=== PATIENT | female | born 1960 | race Caucasian/White ===

== ENCOUNTER → 2017-01-12 | Outpatient (CLI) | payer OTHER ==
--- NOTE | 2017-01-12 13:48 | REP ---
PA LATERAL CHEST: 01/12/2017. CLINICAL HISTORY: Acute bronchitis symptoms. Nonproductive cough. Chest discomfort. No prior study. FINDINGS: Lungs are well inflated. There is no pleural effusion or dense consolidation. There is peribronchial thickening bilaterally which might reflect reactive airway disease or bronchitis. Some streaky or patchy density adjacent left heart border. This may be epicardial fat pad, some atelectasis or even patchy infiltrate. No effusion or dense consolidation. Retrocardiac zone shows some patchy atelectasis or infiltrate on the left base. No definite effusion or pleural thickening or apical scarring. Heart, mediastinal and hilar contours normal. Airway intact. Calcified aortic arch. No compression deformity or destructive lesion in the spine. The other visible bones also intact. IMPRESSION: 1. Peribronchial thickening suggesting bronchiolitis or reactive airway disease with retrocardiac left lower lobe and left base adjacent to the heart border with patchy atelectasis or infiltrates. It could be an epicardial fat pad contributing to the left heart border appearance. No effusion. 2. No cardiomegaly or edema. 3. Aorta with calcified arch but no aneurysm, it is intact. Signed by Jamshid Romeo MD 01/12/2017 03:31 P
== END ==
LOC: M ADAMS 11:43
PROVIDERS: ATTEND Physician Assistant Medical
DX: J20.9 Acute bronchitis, unspecified (principal)

== ENCOUNTER → 2017-01-25 | Outpatient (CLI) | payer OTHER ==
--- NOTE | 2017-01-25 09:16 | REP ---
MR CERVICAL SPINE WITHOUT CONTRAST: HISTORY: Cervicalgia. Facet hypertrophy is present on the left at the C3-4 level. This produces mild narrowing of the left C3 neural foramen. The right C3 neural foramen in patent. Facet hypertrophy is present on the left at the C4-5 level. This produces minimal narrowing of the left C4 neural foramen. The right C4 neural foramen in patent. A disc bulge with associated osteophyte formation is present at the C5-6 level. There is mild effacement of the thecal sac without spinal cord compression. Bilateral uncinate process hypertrophy is present. This produces moderate narrowing of the C5 neural foramina. There is no other disc bulge or herniation. The remaining neural foramina are patent. The spinal cord is normal in signal intensity. The C5-6 intervertebral disc is decreased in height consistent with disc degeneration. Normal signal intensity is present in the cervical vertebral bodies. IMPRESSION: There is cervical spondylosis at the C3-4 through C5-6 levels without spinal cord compression. Signed by Madhu Noble MD 01/25/2017 09:23 A
== END ==
LOC: M RAD 07:07
PROVIDERS: ATTEND Pain Medicine Pain Medicine
DX: M54.2 Cervicalgia (principal)

== ENCOUNTER → 2017-03-10 | Outpatient (REF) | payer OTHER ==
[2017-03-10 15:35] LABS: FOLATE 8.1 NG/ML (>5.4); VITAMIN B12 LEVEL 380 PG/ML (247-911)
[2017-03-10 16:01] LABS: TOTAL PROTEIN 6.6 GM/DL (6.4-8.2)
[2017-03-11 11:54] LABS: ALBUMIN 4.05 GM/DL (3.29-5.55); ALBUMIN % 61.4 % (55.8-66.1); GAMMA GLOBULIN % 10.1 % (11.1-18.8)
[2017-03-14 08:06] LABS: VITAMIN E LEVEL 11.2 mg/L (5.3-16.8)
== END ==
LOC: M LABNEURO 12:58
PROVIDERS: ATTEND Psychiatry & Neurology Neurology
DX: E11.21 Type 2 diabetes mellitus with diabetic nephropathy (principal)

== ENCOUNTER → 2017-07-05 | Outpatient (REF) | payer OTHER | LOC: M LAB REF 17:11 | PROVIDERS: ATTEND Ophthalmology | DX: L72.0 Epidermal cyst (principal) ==

== ENCOUNTER → 2017-07-13 | Outpatient (CLI) | payer OTHER ==
[~2017-07-13] MED LIST: E-Z-GAS II EFFERVESCENT PACKET (SODIUM BICARB./CITRIC ACID/SIMETHICONE) As Ordered ONE; E-Z-HD 98% w/w 340GM SUSP BTL As Ordered ONE; E-Z-PAQUE 96% w/w SUSP 176GM BTL As Ordered ONE; ISOVUE-370 76% 100ML VIAL (Q9967) As Ordered ONE
--- NOTE | 2017-07-13 08:39 | REP ---
CT NECK WITH CONTRAST: HISTORY: Dysphagia. CONTRAST: Isovue 370, 75 mL. Calcifications are present in the tonsils. This is secondary to previous inflammatory disease. The naso-, valentín- and hypopharynx, larynx and subglottic trachea are otherwise normal in appearance. The salivary and thyroid glands are normal in size and density. Small lymph nodes less than 1 cm in size are present in the internal jugular chains, posterior triangles and submandibular area. Atherosclerotic calcification is present at the bifurcations. Degenerative change is present in the cervical spine. The lung apices are clear. The visualized sinuses are clear. IMPRESSION: There is no neck mass or adenopathy. Signed by Madhu Noble MD 07/13/2017 08:58 A
--- NOTE | 2017-07-13 17:08 | REP ---
Esophagram The procedure was performed under the direct supervision of Dr. Casanova. The images were reviewed with Dr. Casanova. A single view PA chest x-ray is submitted as a yard motor operator film. The superior mediastinal structures are midline. The heart size is within normal limits. The lungs are clear. Liquid barium and gas producing granules were given in the erect position as well as liquid barium in the prone oblique positions in order to perform a double contrast esophagram examination. The oral and pharyngeal stages of deglutition are unremarkable. Note is made of bilateral carotid vascular calcifications. Esophageal transport is prompt and efficient and there is no esophagitis, stricture, mucosal ring or hiatal hernia. Gastroesophageal reflux is not demonstrated on this examination. Impression: Essentially unremarkable double contrast esophagram examination. Note is made of bilateral carotid vascular calcifications. 1 minute and 9 seconds of fluoro time was utilized for this procedure. Reviewed by ESTEBAN Capone 07/13/2017 04:11 PSigned by Franklin Casanova MD 07/13/2017 04:59 P
== END ==
LOC: M RAD 07:42
PROVIDERS: ATTEND Otolaryngology
DX: R49.0 Dysphonia (principal)
CPT/HCPCS: 70491; 74220; Q9967

== ENCOUNTER → 2017-11-18 | Outpatient (REF) | payer OTHER ==
[2017-11-18 13:43] LABS: HIV 1&2 SCREEN CENTAUR NEGATIVE (NEGATIVE)
== END ==
LOC: M SFHCADAM 09:50
DX: Z20.6 Contact with and (suspected) exposure to human immunodeficiency virus [HIV] (principal)

== ENCOUNTER → 2017-12-13 | Outpatient (REF) | payer OTHER ==
[2017-12-13 12:56] LABS: HEMATOCRIT 47.6 % (36.0-47.0); HEMOGLOBIN 15.7 g/dl (12.0-16.0); MEAN CORPUSCULAR HEMOGLOBIN 31.3 pg (27.0-33.0); MEAN CORPUSCULAR VOLUME 94.8 fl (80.0-96.0); PLATELET COUNT, AUTOMATED 247 10^3/uL (150-450); RED BLOOD COUNT 5.02 10^6/uL (4.00-5.40); RED CELL DISTRIBUTION WIDTH 12.8 % (11.5-14.5); WHITE BLOOD COUNT 9.7 10^3/uL (4.0-10.0)
[2017-12-13 13:29] LABS: ALBUMIN 3.8 GM/DL (3.2-5.2); ALBUMIN/GLOBULIN RATIO 1.19 (1.00-1.93); ALKALINE PHOSPHATASE 120 U/L (45-117); ALT/SGPT 29 U/L (12-78); ANION GAP 8 MEQ/L (8-16); AST/SGOT 19 U/L (7-37); BILIRUBIN,TOTAL 0.5 MG/DL (0.2-1.0); BLOOD UREA NITROGEN 10 MG/DL (7-18); CALCIUM LEVEL 9.5 MG/DL (8.5-10.1); CARBON DIOXIDE LEVEL 27 MEQ/L (21-32); CHLORIDE LEVEL 106 MEQ/L (98-107); CREATININE FOR GFR 0.56 MG/DL (0.55-1.30); GLOMERULAR FILTRATION RATE > 60.0 (>51); GLUCOSE, FASTING 88 MG/DL (70-100); POTASSIUM SERUM 4.4 MEQ/L (3.5-5.1); SODIUM LEVEL 141 MEQ/L (136-145)
[2017-12-13 13:44] LABS: ERYTHROCYTE SEDIMENTATION RATE 5 mm/hr (0-30)
== END ==
LOC: M SFHCADAM 10:48
DX: G44.211 Episodic tension-type headache, intractable (principal); I10 Essential (primary) hypertension
CPT/HCPCS: 80053

== ENCOUNTER → 2018-03-13 | Outpatient (CLI) | payer OTHER | LOC: M PLARAD 09:25 | DX: M54.2 Cervicalgia (principal) | CPT/HCPCS: 72141 ==

== ENCOUNTER 2018-05-09 07:48 | Emergency (ER) | payer OTHER ==
[2018-05-09] MEDS ORDERED: KETOROLAC 30 MG/ML VIAL (J1885) IV ×2 (08:30)
[2018-05-09] MEDS: MORPHINE 4 MG/ML 1ML VIAL/SYRINGE (J2270) IV ×4 (08:45→08:49)
[2018-05-09] MEDS: ONDANSETRON 4MG/2ML VIAL (J2405) IV ×4 (08:45→08:49)
[2018-05-09 08:52] LABS: BASO # 0.1 10^3/uL (0.0-0.2); BASO % 0.8 % (0.0-1.0); EOS # 0.2 10^3/uL (0.0-0.50); HEMOGLOBIN 15.3 g/dl (12.0-15.5); IMMATURE GRANULOCYTE % 0.3 % (0-3.0); LYMPH # 2.3 10^3/uL (1.5-4.5); LYMPH % 29.8 % (24.0-44.0); MEAN CORPUSCULAR HEMOGLOBIN 32.6 pg (27.0-33.0); MEAN CORPUSCULAR HGB CONC 33.3 g/dl (32.0-36.5); MEAN CORPUSCULAR VOLUME 97.9 fl (80.0-96.0); MONO # 0.5 10^3/uL (0.0-0.8); MONO % 6.5 % (0.0-5.0); NEUTROPHILS # 4.6 10^3/uL (1.8-7.7); NEUTROPHILS % 60.6 % (36.0-66.0); PLATELET COUNT, AUTOMATED 162 10^3/uL (150-450); RED CELL DISTRIBUTION WIDTH 12.6 % (11.5-14.5); WHITE BLOOD COUNT 7.6 10^3/uL (4.0-10.0)
[2018-05-09 09:06] LABS: D-DIMER QUANT 530.9 ng/ml (<500)
[2018-05-09] MEDS: KETOROLAC 30 MG/ML VIAL (J1885) IM ×2 (09:11)
[2018-05-09 09:19] LABS: ANION GAP 6 MEQ/L (8-16); BLOOD UREA NITROGEN 9 MG/DL (7-18); CALCIUM LEVEL 8.6 MG/DL (8.5-10.1); CARBON DIOXIDE LEVEL 28 MEQ/L (21-32); CHLORIDE LEVEL 109 MEQ/L (98-107); CK-MB VALUE MASS 1.9 NG/ML (<3.6); CPK CREATINE PHOSPHOKINASE 94 U/L (26-192); CREATININE FOR GFR 0.59 MG/DL (0.55-1.30); GLOMERULAR FILTRATION RATE > 60.0 (>51); GLUCOSE, FASTING 91 MG/DL (70-100); MB/CK RELATIVE INDEX 2.02 (< OR =4); POTASSIUM SERUM 3.7 MEQ/L (3.5-5.1); SODIUM LEVEL 143 MEQ/L (136-145); TROPONIN I < 0.02 NG/ML (< 0.10)
[2018-05-09] MEDS ORDERED: ISOVUE-370 76% 100ML VIAL (Q9967) As Ordered ×2 (09:31)
[2018-05-09 11:38] LABS: CPK CREATINE PHOSPHOKINASE 77 U/L (26-192); TROPONIN I < 0.02 NG/ML (< 0.10)
[2018-05-09 11:39] LABS: CK-MB VALUE MASS 2.1 NG/ML (<3.6); MB/CK RELATIVE INDEX 2.72 (< OR =4)
== END 2018-05-09 12:19 | disposition home or self-care (01) ==
LOC: M ED 07:48
DX: R07.89 Other chest pain (principal); I45.10 Unspecified right bundle-branch block; M54.6 Pain in thoracic spine; I10 Essential (primary) hypertension; F17.210 Nicotine dependence, cigarettes, uncomplicated; Z82.49 Family history of ischemic heart disease and other diseases of the circulatory system; Z88.0 Allergy status to penicillin; Z88.2 Allergy status to sulfonamides; Z79.899 Other long term (current) drug therapy
CPT/HCPCS: J2405

== ENCOUNTER → 2018-11-17 | Outpatient (CLI) | payer OTHER ==
[~2018-11-17] MED LIST changes: +AMLO10TA5; +BACL10TA2; -E-Z-GAS II EFFERVESCENT PACKET (SODIUM BICARB./CITRIC ACID/SIMETHICONE) As Ordered ONE; -E-Z-HD 98% w/w 340GM SUSP BTL As Ordered ONE; -E-Z-PAQUE 96% w/w SUSP 176GM BTL As Ordered ONE; +GABA600T4; -ISOVUE-370 76% 100ML VIAL (Q9967) As Ordered ONE; +LISI-542; +NAPR-885 PO; +OXYC10TA3
--- NOTE | 2018-12-04 01:07 | ECWPNPC ---
PATIENT NAME: STU MEJIA : 1960 GENDER: FEMALE VISIT DATE: 11/17/2018 DISCHARGE DATE: 11/17/18 1224 VISIT LOCKED DATE TIME: PHYSICIAN: AL LOVELL MD RESOURCE: AL LOVELL MD REASON FOR APPOINTMENT 1. NECK AND BACK PAIN W/ POLYNEUROPATHY HISTORY OF PRESENT ILLNESS NEW PATIENT CONSULT: WHEN DID YOUR PAIN FIRST START? . BRIEFLY DESCRIBE HOW YOUR PAIN STARTED? . HOW DOES YOUR PAIN CHANGE WITH TIME? . DOES YOUR PAIN AWAKEN YOU FROM SLEEP? . HOW MANY HOURS OF SLEEP DO YOU NORMALLY GET? . ANY DIAGNOSTIC TESTING? . FACILITY WHERE TESTS WERE DONE? ____. PAIN TREATMENT TREATMENT YES CANCER HAVE YOU EVER HAD ANY TYPE OF CANCER?NO NO. PAIN SCREENING: PATIENT HAS A COMPLAINT OF ACUTE OR CHRONIC PAIN :YES 58 YEAR OLD FEMALE PATIENT WITH A HISTORY OF CHRONIC LOW BACK AND NECK PAIN. THE PATIENT DESCRIBES THE PAIN ACHING, BURNING, SHARP, AND CONTINUOUS WITH A PAIN SCORE OF 4-8/10 DEPENDING ON PHYSICAL ACTIVITY. THE PATIENT SAYS HER PAIN IS IN HER NECK AREA AND LOW BACK AREA WITH RADIATION DOWN HER RIGHT LEG. THE PATIENT SAYS THAT SHE HAS HAD THIS PAIN FOR A FEW YEARS AND HAS RECEIVED INJECTIONS IN THE PAST AT [facility] AND [facility]. THE PATIENT SAYS SHE HAS HAD GOOD PAIN RELIEF WITH INJECTIONS IN THE PAST. THE PATIENT REPORTS THAT SHE HAS A HISTORY OF VERTIGO AND SHE IS UNABLE TO MOVE HER NECK CERTAIN WAYS DUE TO THIS, BUT IS BEING TREATED FOR IT. PATIENT DENIES UNEXPLAINABLE WEIGHT LOSS, FEVER, CHILLS, NEW CHANGES ON HER URINARY OR BOWEL CONTROL. FALL RISK SCREENING: SCREENING : NO FALLS IN THE PAST YEAR. CASTANEDA INVENTORY: QUESTIONNAIRE ASSESSEDTBD SCORE VALUE CALCULATED TBD CURRENT MEDICATIONS TAKING OXYCODONE-ACETAMINOPHEN 10-325 MG TABLET 1 TABLET NEEDED ORALLY TAKING GABAPENTIN 600 MG TABLET 1 CAP AM 1/2 NOON 1 CAP PM ORALLY THREE TIMES DAILY TAKING MULTIVITAMIN - TABLET CHEWABLE 1 TAB ORALLY DAILY TAKING VITAMIN B12 1000 MCG TABLET EXTENDED RELEASE 1 TABLET ORALLY ONCE A DAY TAKING AMLODIPINE BESYLATE 10 MG TABLET 1 TABLET ORALLY ONCE A DAY IN THE WINTER DUE TO RAGLAND BITE/FEET TAKING MECLIZINE HCL 25 MG TABLET 1 TABLET NEEDED ORALLY BEFORE BEDTIME TAKING CLARITIN 10 MG TABLET 1 TABLET ORALLY ONCE A DAY TAKING CHANTIX STARTING MONTH VARUN 0.5 MG X 11 & 1 MG X 42 TABLET DIRECTED ORALLY DIRECTED, NOTES: NOT STARTED YET TAKING CHANTIX CONTINUING MONTH VARUN 1 MG TABLET 1 TABLET ORALLY TWICE A DAY, NOTES: NOT STARTED YET NOT-TAKING FLUTICASONE PROPIONATE 50 MCG/ACT SUSPENSION SPRAY 2 SPRAYS IN EACH NOSTRIL ONCE DAILY NASAL NOT-TAKING OXYCONTIN 10 MG TABLET EXTENDED RELEASE 12 HOUR 1 TABLET ORALLY DAILY PRN MEDICATION LIST REVIEWED AND RECONCILED WITH THE PATIENT PAST MEDICAL HISTORY ABNORMAL PAP SMEAR, HPV +PRIOR TO 1999 RAYNAUD'S RAGLAND BITE- FEET 2004 NEUROPATHY ARMS AND LEGS - EMG 08/04/16 - SENSORY PERIPHERAL POLYNEUROPATHY - FOLLOWED BY DR. 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 ALLERGIES PENICILLIN (FOR ALLERGIES USE ONLY): ANAPHYLAXIS: ALLERGY SULFA (FOR ALLERGY USE ONLY): ANAPHYLAXIS: ALLERGY DOXYCYCLINE: NAUSEA, DIARRHEA: SIDE EFFECTS SURGICAL HISTORY CHOLECYSTECTOMY 1998 COLPOSCOPY [id number] COLONOSCOPY (FOR DIARRHEA) WITH NORMAL FINDINGS 2004 NUMEROUS INJECTIONS INCLUDING RADIOFREQUENCY 2016 UNTIL NOW FAMILY HISTORY FATHER: 71 YRS, MVA MOTHER: ALIVE, ATRIAL FIB SIBLINGS: SISTER BREAST CANCER AT AGE EARLY 40'S [facility]. SOCIAL HISTORY GENERAL: TOBACCO USE ARE YOU A:CURRENT SMOKER ARE YOU INTERESTED IN QUITTING?THINKING ABOUT QUITTING COUNSELED THE PATIENT ON SMOKING CESSATION, EDUCATION [id number]/15/2019 HOW MANY CIGARETTES A DAY DO YOU SMOKE?11-20 HOW SOON AFTER YOU WAKE UP DO YOU SMOKE YOUR FIRST CIGARETTE?WITHIN 5 MIN HOW OFTEN DO YOU SMOKE CIGARETTES?EVERY DAY PATIENT COUNSELED ON THE DANGERS OF TOBACCO USE AND URGED TO QUIT:11/17/2018 ALCOHOL SCREENING DID YOU HAVE A DRINK CONTAINING ALCOHOL IN THE PAST YEAR?NO POINTS0 INTERPRETATIONNEGATIVE RECREATIONAL DRUG USE SMOKING STATUS: CURRENT SMOKER, IS THE PATIENT BETWEEN THE AGE OF 55 AND 77? YES, HAS THE PATIENT EVER BEEN DIAGNOSED WITH LUNG CANCER? NO. CAFFEINE CAFFEINE USE?YES DAILY SEVERAL CUPS CATHOLIC [id number] SABIANISM LANGUAGE LANGUAGES SPOKEN:DANISH EDUCATION LEVEL OF EDUCATION:HIGH SCHOOL OCCUPATION: DO YOU FEEL SAFE IN YOUR ENVIRONMENT? YES. DIET: DO YOU FEEL SAFE IN YOUR ENVIRONMENT? YES [facility]. EXERCISE: DO YOU FEEL SAFE IN YOUR ENVIRONMENT? YES [facility], REGULAR. MARITAL STATUS: DO YOU FEEL SAFE IN YOUR ENVIRONMENT? YES [facility], REGULAR, WALKS KEEP WORKING. OTHERS AT HOME: DO YOU FEEL SAFE IN YOUR ENVIRONMENT? YES [facility], REGULAR, WALKS KEEP WORKING, SINGLE. HOUSING: PFS REFERRAL NEEDED? NO, CLERGY REFERRAL NEEDED? NO, PUBLIC HEALTH REFERRAL NEEDED? NO, WAS THE PROVIDER NOTIFIED OF ANY PERTINENT INFO? NO, HAS THE PATIENT BEEN EDUCATED REGARDING HIS/HER PLAN OF CARE? YES, HAS THE PATIENT BEEN EDUCATED REGARDING PAIN, THE RISK FOR PAIN, THE IMPORTANCE OF EFFECTIVE PAIN MANAGEMENT, AND THE PAIN ASSESSMENT PROCESS? YES. ADVANCE DIRECTIVE ADVANCE DIRECTIVE DISCUSSED WITH PATIENT:YES PATIENT GIVEN PRINTED MATERIAL TO TAKE HOME TO FILL OUT WITH FAMILY MEMBERS, DECLINES MY ASSISTANCE WITH IT AT THIS TIME HOSPITALIZATION/MAJOR DIAGNOSTIC PROCEDURE BROKEN ARM-CHILD SURGERY REVIEW OF SYSTEMS REVIEWED BY: PROVIDER: AL LOVELL MD . CONSTITUTIONAL: ANY CHANGE IN YOUR MEDICAL CONDITION? NO . CHILLS NO . FEVER NO . INFECTION: DO YOU HAVE NEW INFECTIONS? NO . DO YOU HAVE HISTORY OF MRSA? NO . MUSCULOSKELETAL: ANY NEW PATTERNS OF PAIN OR NUMBNESS? INCREASED "EVERYWHERE" . SYTEMIC LUPUS NO . GASTROENTEROLOGY: ANY NEW CHANGE IN BOWEL CONTROL? NO . BARRETTS ESOPHAGUS NO . CIRRHOSIS NO . HEPATITIS NO . LIVER FAILURE NO . ACID REFLUX NO . UNEXPLAINED WEIGHT LOSS NO . GENITOURINARY: ANY NEW CHANGE IN BLADDER CONTROL? NO . IS THERE A CHANCE YOU COULD BE ? NO . HEMATOLOGY/LYMPH: DO YOU TAKE ANY BLOOD THINNERS? (FOR EXAMPLE- COUMADIN, PLAVIX, AGGRENOX, PLATEL, PRADAXA, OR XARELTO) NO . WHEN WAS YOUR LAST DOSE? DATE: TIME: . LOW PLATELET COUNT NO . SICKLE CELL DISEASE NO . VON WILLIEBRANDS NO . FACTOR V LEIDEN NO . THALLASEMIA NO . ANEMIA NO . EASY BRUISING NO . NEUROLOGY: HAVE YOU FALLEN IN THE PAST 12 MONTHS? NO . ANY NEW EXTREMITY NUMBNESS OR WEAKNESS? NO . HEAD INJURY NO . DEMENTIA NO . CEREBRAL PALSY NO . MULTIPLE SCLEROSIS NO . DIZZINESS YES . HEADACHE NO . STROKES NO . VERTIGO YES FLUID BEHIND THE EAR RECENTLY IS TAKING MEDICATION TO RESOLVE THIS ISSUE . CARDIOLOGY: DO YOU HAVE A PACEMAKER OR DEFIBRILLATOR? NO . ANGINA NO . HEART ATTACK NO . HEART SURGERY NO . CONGESTIVE HEART FAILURE/FLUID OVERLOAD NO . CHEST PAIN NO . HIGH BLOOD PRESSURE NO . IRREGULAR HEART BEAT NO . RESPIRATORY: HAVE YOU BEEN SICK IN THE PAST WEEK? NO . FEVER NO . FLU LIKE SYMPTOMS? NO . CPAP NO . BYPAP NO . ASTHMA NO . EMPHYSEMA NO . CHRONIC LUNG DISEASES NO . SHORTNESS OF BREATH ON EXERTION NO . DO YOU USE ANY TYPE OF TOBACCO (SMOKE, SMOKELESS, CHEW)? YES WILL BE STARTING CHANTIX XOON . COUGH NO . SNORING NO . INTEGUMENTARY: DO YOU HAVE ANY RASHES OR OPEN SORES? NO . ALLERGIC/IMMUNO: ARE YOU ALLERGIC TO IV DYE? NO . ANY NEW ALLERGIES? NO . PSYCHIATRIC: DO YOU HAVE THOUGHTS OF HURTING YOURSELF OR SOMEONE ELSE? NO . ARE YOU ABUSED, NEGLECTED, OR IN AN UNSAFE ENVIRONMENT? NO . ENDOCRINOLOGY: ARE YOU DIABETIC? NO . THYROID DISORDER NO . OTHER: DO YOU NEED ANY PRESCRIPTIONS? NO . IF YES, PLEASE LIST: ____ . ANY NEW PROBLEMS WITH YOUR MEDICATIONS? NO . WHEN DID YOU LAST EAT? ____ . WHEN DID YOU LAST DRINK? ____ . WHAT DID YOU LAST DRINK? ____ . NAME OF PERSON DRIVING YOU HOME? ____ . DO YOU HAVE ANY OTHER QUESTIONS OR CONCERNS NO . VITAL SIGNS WT 168 LBS, HT 5'3 1/2", BMI 29.29 INDEX, BP 120/75 MM HG, HR 89 /MIN, RR 18 /MIN, TEMP 97.6 F, OXYGEN SAT % 95%, SAFE IN ENV? (Y/N) YES, NA INITIALS SC 10:28, REVIEWED BY: KG. EXAMINATION GENERAL EXAMINATION: PATIENT IS ALERT O X 3 AND COOPERATIVE. LUNGS CLEAR, TO AUSCULTATION. HEART: NO MURMURS OR GALLOPS; FACIAL CRANIAL NERVES ARE GROSSLY NORMAL. GOOD SYMMETRY OF FACIAL MUSCLE MOVEMENT. NORMAL VISUAL ASHLEY. PATIENT HAS DIFFICULTY ABDUCTING THE UPPER EXTREMITIES. PAIN INCREASES OVER THE CERVICAL FACET JOINTS WITH EXTENSION AND LATERAL ROTATION OF THE NECK. PATIENT IS IN A FLEXED POSITION. TENDERNESS IN THE LOW BACK AREA. RIGHT LEG IS WEAKER AT EXTENSION AND FLEXION. STRAIGHT LEG RAISE OF THE RIGHT LEG IS POSITIVE AT 45 DEGREES FOR RADICULOPATHY. MRI OF THE CERVICAL SPINE DONE ON 03/13/2018 SHOWS BULGING DISCS AND FACET ARTHROPATHY CHANGES AT MULTIPLE LEVELS. MRI OF THE LUMBAR SPINE DONE ON 07/09/2016 SHOWS FACET ARTHROPATHY CHANGES, BULGING DISCS, AND STENOSIS AT MULTIPLE LEVELS. 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 MEJIA'S PAIN MANAGEMENT CASE. I WOULD LIKE TO GET COPIES OF THE PATIENT'S MOST RECENT LUMBAR MRI REPORT. THE PATIENT WILL CONTINUE WITH HER LOW BACK INJECTIONS IN [place] FOR NOW SINCE THEY HAVE ALREADY REQUESTED AUTHORIZATION. THE PATIENT WILL CONSIDER INJECTIONS OVER THE NECK ONCE THE VERTIGO IS UNDER CONTROL. THE PATIENT WILL NEED IV SEDATION WITH ANY PROCEDURES DUE TO PAIN AND ANXIETY ASSOCIATED WITH THE PROCEDURES. THE PATIENT WILL FOLLOW UP IN 2 MONTHS. INSTRUCTIONS WERE GIVEN, QUESTIONS WERE ANSWERED, PATIENT REPORTS UNDERSTANDING AND AGREES WITH THE PLAN. I, TOHMPSON MOHR, DOCUMENTED THE ABOVE INFORMATION ACTING A SCRIBE FOR DR. LOVELL. I HAVE REVIEWED THE ABOVE DOCUMENT, WRITTEN BY THOMPSON DUNCAN AND I VERIFY THAT IT IS ACCURATE. DEAR DR. DENNEY:THANK YOU FOR YOUR KIND REFERRAL OF MRS. MEJIA. IF YOU WANT TO DISCUSS HER CASE WITH ME PLEASE CALL ME AT THE PAIN CENTER AT [phone]. SINCERELY,AL LOVELL, [facility]. PROCEDURE CODES FA211 ESTABILISHED PATIENT [facility] FACILITY CHARGE [id number] CURRENT MEDS W/DOSAGES DOCUMENTED G8730 PAIN ASSESS POS TOOL F/U PLAN DOC DISPOSITION & COMMUNICATION FOLLOW UP 2 MONTHS (REASON: NECK & LOW BACK) ELECTRONICALLY SIGNED BY AL LOVELL MD, MD ON 12/03/2018 AT 01:45 PM EST DISCLAIMER : THIS IS A VISIT SUMMARY EXTRACTED FROM THE [employer] CHART. IT IS NOT A COPY OF THE [employer] PROGRESS NOTE. MTDD
== END ==
LOC: M PAIN 10:30
PROVIDERS: ATTEND Anesthesiology
DX: M47.812 Spondylosis without myelopathy or radiculopathy, cervical region (principal); M47.816 Spondylosis without myelopathy or radiculopathy, lumbar region; M48.061 Spinal stenosis, lumbar region without neurogenic claudication; M51.16 Intervertebral disc disorders with radiculopathy, lumbar region; I73.00 Raynaud's syndrome without gangrene; G62.9 Polyneuropathy, unspecified; I10 Essential (primary) hypertension; F17.210 Nicotine dependence, cigarettes, uncomplicated; R49.0 Dysphonia; Z90.49 Acquired absence of other specified parts of digestive tract; Z79.891 Long term (current) use of opiate analgesic; Z79.899 Other long term (current) drug therapy; Z88.0 Allergy status to penicillin; Z88.2 Allergy status to sulfonamides; Z88.1 Allergy status to other antibiotic agents

== ENCOUNTER → 2018-11-23 | Outpatient (CLI) | payer OTHER ==
[~2018-11-23] MED LIST changes: +PROHANCE 279.3MG/ML 15ML VIAL (A9576) As Ordered ONE
--- NOTE | 2018-11-23 11:05 | REP ---
MRI BRAIN WITHOUT CONTRAST: HISTORY: Dizziness. CONTRAST: ProHance 15 mL. Several punctate areas of increased signal intensity on T2-weighted images are present in the clementina. This represents small vessel ischemic disease. There is no intraparenchymal hemorrhage, infarct, mass or midline shift. There is no abnormal enhancement. The ventricular system is normal in appearance. There is no extracerebral collection. There is inferior extension of the cerebellar tonsils through the foramen magnum consistent with cerebellar tonsillar ectopia. There is no cerebellopontine angle mass. The inner ear structures are normal in appearance. Minimal mucosal thickening is present in the mastoid air cells. The sinuses are clear. IMPRESSION: 1. Minimal small vessel ischemic disease. 2. Cerebellar tonsillar ectopia. Electronically Signed by Madhu Noble MD 11/23/2018 11:13 A
--- NOTE | 2018-11-24 10:04 | REP ---
Clinical: Headaches and dizziness with presyncopal episode. Technique: Anglin scale and color Doppler evaluation using linear high frequency transducer Findings: Two-dimensional anglin scale and color images demonstrate mixed atheromatous plaquing (left greater than right). Color Doppler interrogation demonstrates normal arterial wave patterns and velocities with no significant spectral broadening. Normal flow direction is appreciated in the bilateral vertebral arteries. RIGHT (cm/s) LEFT (cm/s) ICA peak systolic velocity 65.0 84.4 ICA diastolic velocity 31.7 25.2 ECA peak systolic velocity 88.7 103.0 CCA peak systolic velocity 65.2 72.4 ICA/CCA ratio 1.0 1.2 Impression: No hemodynamically significant areas of narrowing or stenosis appreciated. Based on set standards narrowing falls within the less than 50% range. Electronically Signed by Osman Pepe MD 11/24/2018 09:56 A
== END ==
LOC: M RAD 09:31
PROVIDERS: ATTEND Physician Assistant Medical
DX: R42 Dizziness and giddiness (principal); R55 Syncope and collapse
CPT/HCPCS: 70553; 93880; A9576

== ENCOUNTER → 2019-10-30 | Outpatient (CLI) | payer OTHER ==
[~2019-10-30] MED LIST changes: -PROHANCE 279.3MG/ML 15ML VIAL (A9576) As Ordered ONE
--- NOTE | 2019-10-31 03:46 | REP ---
Clinical: Shoulder pain. Technique: Internal rotation, external rotation, and Y view of the right and left shoulder. Findings: Right shoulder demonstrates cortical irregularity with subtle spurring and small calcification at the acromioclavicular joint as well as subtle blunting to the calcified glenoid rim. Subacromial space is normal. No acute fracture or dislocation. Left shoulder demonstrates minimal cortical irregularity at the acromioclavicular joint and mild blunting to the calcified glenoid rim. The subacromial space is normal. No periarticular calcifications or loose bodies noted. No acute fracture dislocation. Impression: Mild arthritic changes (right greater than left). Electronically Signed by Osman Pepe MD 10/31/2019 03:38 A
== END ==
LOC: M ADAMS 09:24
PROVIDERS: ATTEND Nurse Practitioner Family
DX: M19.011 Primary osteoarthritis, right shoulder (principal); M19.012 Primary osteoarthritis, left shoulder

== ENCOUNTER → 2019-10-30 | Outpatient (CLI) | payer OTHER ==
--- NOTE | 2019-10-31 03:42 | REP ---
Clinical: Dyspnea on exertion . Comparison: 05/09/2018 . Technique: PA and lateral. Findings: The mediastinum and cardiac silhouette are normal. The lung bhatt are clear and without acute consolidation, effusion, or pneumothorax. The skeletal structures are intact and normal. Impression: 1. No acute cardiopulmonary process. Electronically Signed by Osman Pepe MD 10/31/2019 03:34 A
== END ==
LOC: M ADAMS 11:13
PROVIDERS: ATTEND Physician Assistant
DX: R06.09 Other forms of dyspnea (principal)

== ENCOUNTER → 2019-10-30 | Outpatient (REF) | payer OTHER ==
[2019-10-30 13:20] LABS: HEMATOCRIT 46.5 % (36.0-47.0); HEMOGLOBIN 15.5 g/dl (12.0-15.5); MEAN CORPUSCULAR HEMOGLOBIN 32.6 pg (27.0-33.0); MEAN CORPUSCULAR HGB CONC 33.3 g/dl (32.0-36.5); MEAN CORPUSCULAR VOLUME 97.9 fl (80.0-96.0); PLATELET COUNT, AUTOMATED 210 10^3/uL (150-450); RED BLOOD COUNT 4.75 10^6/uL (4.00-5.40); WHITE BLOOD COUNT 8.2 10^3/uL (4.0-10.0)
[2019-10-30 13:54] LABS: ALBUMIN 3.8 GM/DL (3.2-5.2); ALT/SGPT 125 U/L (12-78); BILIRUBIN,TOTAL 0.5 MG/DL (0.2-1.0); BLOOD UREA NITROGEN 9 MG/DL (7-18); CALCIUM LEVEL 9.1 MG/DL (8.5-10.1); CARBON DIOXIDE LEVEL 29 MEQ/L (21-32); CHLORIDE LEVEL 105 MEQ/L (98-107); CHOLESTEROL LEVEL 196 MG/DL (<200); CHOLESTEROL RISK RATIO 3.379 (<5); CREATININE FOR GFR 0.54 MG/DL (0.55-1.30); FREE T4 1.29 NG/DL (0.76-1.46); GLOMERULAR FILTRATION RATE > 60.0 (>51); GLUCOSE, FASTING 84 MG/DL (70-100); HDL CHOLESTEROL 58 MG/DL (>40); LDL CHOLESTEROL 114 MG/DL (<100); NON-HDL-C 138 MG/DL; POTASSIUM SERUM 4.2 MEQ/L (3.5-5.1); SODIUM LEVEL 138 MEQ/L (136-145); THYROID STIMULATING HORMONE 0.897 uIU/ML (0.358-3.740); TOTAL PROTEIN 6.8 GM/DL (6.4-8.2); TRIGLYCERIDES LEVEL 121 MG/DL (<150)
[2019-10-30 13:56] LABS: FOLATE 19.4 NG/ML; TOTAL 25(OH) VITAMIN D 23.2 NG/ML (30.0-100.0); VITAMIN B12 LEVEL 373 PG/ML
== END ==
LOC: M SFHCADAM 10:32
PROVIDERS: ATTEND Physician Assistant
DX: R06.09 Other forms of dyspnea (principal); F17.210 Nicotine dependence, cigarettes, uncomplicated; I10 Essential (primary) hypertension; J44.9 Chronic obstructive pulmonary disease, unspecified; Z13.220 Encounter for screening for lipoid disorders; M54.5 Low back pain; R53.82 Chronic fatigue, unspecified

== ENCOUNTER → 2019-11-12 | Outpatient (CLI) | payer OTHER ==
--- NOTE | 2019-11-12 10:37 | REP ---
Clinical: Lung screening. History smoking and dyspnea on exertion. Comparison: Contrast enhanced chest CT dated 05/09/2018 Technique: Axial low-dose noncontrast images from the thoracic inlet to the upper abdomen using lung screening technique. Findings: The lung bhatt are well-aerated. No consolidation, significant nodule or mass lesion is appreciated. No pleural effusion/reaction or pneumothorax. Tracheobronchial tree is patent. Mediastinum demonstrates mild atherosclerotic changes of the coronary arteries without cardiomegaly. Impression: Lung-RADS category I. No nodule or suspicious abnormality. Electronically Signed by Osman Pepe MD 11/12/2019 10:28 A
== END ==
LOC: M RAD 09:39
PROVIDERS: ATTEND Physician Assistant
DX: R06.09 Other forms of dyspnea (principal); F17.210 Nicotine dependence, cigarettes, uncomplicated

== ENCOUNTER → 2019-11-15 | Outpatient (REF) | payer OTHER ==
[2019-11-15 16:35] LABS: FERRITIN 90 NG/ML (8-252)
[2019-11-16 10:12] LABS: HEPATITIS B SURFACE ANTIGEN NEGATIVE (NEGATIVE)
[2019-11-16 10:38] LABS: HEPATITIS C VIRUS ABY INDEX < 0.0 INDEX (<0.8)
[2019-11-16 10:39] LABS: HEPATITIS B CORE ANTIBODY IGM NEGATIVE (NEGATIVE)
[2019-11-16 10:41] LABS: HEPATITIS A ANTIBODY IGM NEGATIVE (NEGATIVE)
[2019-11-18 00:06] LABS: ANA (HEP2) Negative (.); ANTI-MITOCHONDRIAL ANTIBODY <20.0 Units (0.0-20.0)
== END ==
LOC: M SFHCADAM 12:57
PROVIDERS: ATTEND Physician Assistant
DX: R74.8 Abnormal levels of other serum enzymes (principal)

== ENCOUNTER → 2019-11-23 | Outpatient (CLI) | payer OTHER ==
--- NOTE | 2019-11-23 08:30 | REP ---
Right upper quadrant sonography: History: Elevated liver enzymes. Prior cholecystectomy. No comparison sonography. Findings: Scanning through the right upper quadrant of the abdomen demonstrates mildly increased echogenicity in the liver. The liver is not enlarged and no focal liver lesion is seen. Limited views of the pancreas show no abnormality. The common bile duct is normal post cholecystectomy measuring 10 mm in greatest diameter. No intrahepatic ductal dilation is seen. There is no evidence of ascites or right renal abnormality. The right kidney measures 11.6 x 5.7 x 4.1 cm. Impression: No significant abnormality. Post cholecystectomy. Electronically Signed by Franklin Casanova MD 11/23/2019 08:22 A
== END ==
LOC: M RAD 07:21
PROVIDERS: ATTEND Physician Assistant
DX: R74.8 Abnormal levels of other serum enzymes (principal); Z90.49 Acquired absence of other specified parts of digestive tract

== ENCOUNTER → 2020-02-26 | Outpatient (CLI) | payer OTHER ==
--- NOTE | 2020-02-26 13:03 | REP ---
Right lower extremity Duplex Doppler venous ultrasound: Real time compression and duplex Doppler interrogation of the right lower extremity deep venous system is performed. The right common femoral, superficial femoral and popliteal veins are fully compressible with transducer pressure and demonstrate normal spontaneous and phasic flow, without evidence of deep venous thrombosis. Impression: No evidence of deep venous thrombosis of the right lower extremity femoral popliteal venous system. Electronically Signed by Milton Anglin MD 02/26/2020 12:54 P
[2020-02-26 13:26] LABS: BASO # 0.1 10^3/uL (0.0-0.2); BASO % 0.7 % (0.0-1.0); EOS # 0.2 10^3/uL (0.0-0.5); EOS % 2.8 % (0.0-3.0); HEMATOCRIT 43.1 % (36.0-47.0); HEMOGLOBIN 14.1 g/dl (12.0-15.5); LYMPH # 2.1 10^3/uL (1.5-5.0); LYMPH % 24.8 % (24.0-44.0); MEAN CORPUSCULAR HEMOGLOBIN 31.9 pg (27.0-33.0); MEAN CORPUSCULAR HGB CONC 32.7 g/dl (32.0-36.5); MEAN CORPUSCULAR VOLUME 97.5 fl (80.0-96.0); MONO # 0.6 10^3/uL (0.0-0.8); MONO % 7.1 % (0.0-5.0); NEUTROPHILS # 5.5 10^3/uL (1.5-8.5); NEUTROPHILS % 64.3 % (36.0-66.0); PLATELET COUNT, AUTOMATED 212 10^3/uL (150-450); RED BLOOD COUNT 4.42 10^6/uL (4.00-5.40); WHITE BLOOD COUNT 8.6 10^3/uL (4.0-10.0)
[2020-02-26 14:04] LABS: ALBUMIN 3.4 GM/DL (3.2-5.2); ALT/SGPT 22 U/L (12-78); BILIRUBIN,TOTAL 0.7 MG/DL (0.2-1.0); BLOOD UREA NITROGEN 10 MG/DL (7-18); CALCIUM LEVEL 8.9 MG/DL (8.5-10.1); CARBON DIOXIDE LEVEL 27 MEQ/L (21-32); CHLORIDE LEVEL 106 MEQ/L (98-107); CREATININE FOR GFR 0.68 MG/DL (0.55-1.30); GLOMERULAR FILTRATION RATE > 60.0 (>51); GLUCOSE, FASTING 79 MG/DL (70-100); POTASSIUM SERUM 3.9 MEQ/L (3.5-5.1); SODIUM LEVEL 139 MEQ/L (136-145); TOTAL PROTEIN 6.5 GM/DL (6.4-8.2)
== END ==
LOC: M RAD 12:09
PROVIDERS: ATTEND Physician Assistant
DX: R60.0 Localized edema (principal)

== ENCOUNTER 2020-04-16 15:06 | Emergency (ER) | payer OTHER ==
[~2020-04-16] VITALS: Ht 160 cm; Wt 82.6 kg
[2020-04-16 15:06] VITALS: BP 114/72
== END 2020-04-16 15:50 | disposition left against medical advice (07) ==
LOC: M ED 15:06
DX: Z53.21 Procedure and treatment not carried out due to patient leaving prior to being seen by health care provider (principal)

== ENCOUNTER → 2020-05-30 | Outpatient (REF) | payer OTHER ==
[~2020-05-30] MED LIST changes: -AMLO10TA5; +AMLO1TAB25
[2020-05-30 19:20] LABS: BLOOD UREA NITROGEN 5 MG/DL (7-18); CALCIUM LEVEL 8.8 MG/DL (8.5-10.1); CARBON DIOXIDE LEVEL 29 MEQ/L (21-32); CHLORIDE LEVEL 105 MEQ/L (98-107); CREATININE FOR GFR 0.72 MG/DL (0.55-1.30); GLOMERULAR FILTRATION RATE > 60.0 (>51); GLUCOSE, FASTING 70 MG/DL (70-100); SODIUM LEVEL 141 MEQ/L (136-145)
== END ==
LOC: M SFHCADAM 17:54
PROVIDERS: ATTEND Family Medicine
DX: G62.9 Polyneuropathy, unspecified (principal); R60.0 Localized edema

== ENCOUNTER → 2020-06-03 | Outpatient (CLI) | payer OTHER ==
[~2020-06-03] MED LIST changes: +GASTROGRAFIN SOLUTION 30ML (Q9963) As Ordered ONE; +ISOVUE-370 76% 100ML VIAL As Ordered ONE
--- NOTE | 2020-06-30 11:34 | REP ---
CONTRAST ENHANCED CT OF THE ABDOMEN AND PELVIS CLINICAL: Abdominal pain. TECHNIQUE: Axial contrast enhanced images from the lung bases to the pubic symphysis using oral (per protocol) and 100 cc Isovue-370 intravenous contrast material with coronal and sagittal reformations. COMPARISON: None. FINDINGS: Abdominal aortic aneurysm measures 4.5 cm maximal diameter and appears partially thrombosed. The aneurysm originates just below the level of the renal arteries and terminates at the level of the bifurcation where thrombosed occlusion of the left common iliac artery is noted. There is subsequent revascularization of the left common iliac artery at the bifurcation to internal and external arteries likely secondary to collateral vessels from the pelvis and right side. Associated atherosclerotic changes of the aorta and branch vessels noted. The celiac access, superior mesenteric artery, bilateral renal arteries, and right iliac artery demonstrate satisfactory perfusion. The kidneys demonstrate symmetric enhancement without atrophy. Liver, spleen, pancreas, bilateral adrenal glands, and kidneys are normal. Evidence for prior cholecystectomy. Evaluation of the enteric system demonstrates circumferential mucosa thickening at the level of the hepatic flexure which represent peristalsis, although an underlying neoplastic lesion cannot definitively be excluded. There is no evidence for bowel obstruction, and the remainder of the small and large bowel appears grossly normal. Pelvis demonstrates normal bladder and age-appropriate uterus/adnexa. No ascites. No free air. No adenopathy. Musculoskeletal structures demonstrate degenerative changes without acute osseous abnormality. Lung bases are clear. IMPRESSION: * Extensive atherosclerotic disease with abdominal aortic aneurysm measuring 4.5 cm maximal diameter and findings as described above. * Focal circumferential submucosal thickening and luminal narrowing at the hepatic flexure of the colon warrants colonoscopy to exclude underlying pathology such as malignancy. * Chronic further changes as above. * Preliminary report faxed to clinician at the time of examination. [facility]
== END ==
LOC: M RAD 09:34
PROVIDERS: ATTEND Physician Assistant
DX: R10.816 Epigastric abdominal tenderness (principal)

== ENCOUNTER → 2020-06-03 | Outpatient (CLI) | payer OTHER ==
[~2020-06-03] MED LIST changes: -GASTROGRAFIN SOLUTION 30ML (Q9963) As Ordered ONE; -ISOVUE-370 76% 100ML VIAL As Ordered ONE
[2020-06-03 09:48] LABS: BASO # 0.1 10^3/uL (0.0-0.2); BASO % 0.8 % (0.0-1.0); EOS # 0.2 10^3/uL (0.0-0.5); HEMATOCRIT 47.8 % (36.0-47.0); HEMOGLOBIN 15.7 g/dl (12.0-15.5); LYMPH # 2.4 10^3/uL (1.5-5.0); MEAN CORPUSCULAR HEMOGLOBIN 32.6 pg (27.0-33.0); MEAN CORPUSCULAR HGB CONC 32.8 g/dl (32.0-36.5); MEAN CORPUSCULAR VOLUME 99.2 fl (80.0-96.0); MONO # 0.6 10^3/uL (0.0-0.8); MONO % 6.6 % (0.0-5.0); NEUTROPHILS # 5.4 10^3/uL (1.5-8.5); NEUTROPHILS % 62.4 % (36.0-66.0); PLATELET COUNT, AUTOMATED 206 10^3/uL (150-450); RED BLOOD COUNT 4.82 10^6/uL (4.00-5.40); WHITE BLOOD COUNT 8.6 10^3/uL (4.0-10.0)
[2020-06-03 10:17] LABS: ALBUMIN 3.4 GM/DL (3.2-5.2); ALT/SGPT 19 U/L (12-78); AMYLASE 45 U/L (25-115); BILIRUBIN,TOTAL 0.4 MG/DL (0.2-1.0); BLOOD UREA NITROGEN 6 MG/DL (7-18); CALCIUM LEVEL 9.1 MG/DL (8.5-10.1); CARBON DIOXIDE LEVEL 29 MEQ/L (21-32); CHLORIDE LEVEL 106 MEQ/L (98-107); GLOMERULAR FILTRATION RATE > 60.0 (>51); GLUCOSE, FASTING 92 MG/DL (70-100); LIPASE 66 U/L (73-393); POTASSIUM SERUM 4.2 MEQ/L (3.5-5.1); SODIUM LEVEL 142 MEQ/L (136-145); TOTAL PROTEIN 6.7 GM/DL (6.4-8.2)
== END ==
LOC: M LAB 08:47
PROVIDERS: ATTEND Physician Assistant
DX: R10.816 Epigastric abdominal tenderness (principal)

== ENCOUNTER → 2020-10-29 | Outpatient (CLI) | payer OTHER ==
[~2020-10-29] MED LIST changes: -LISI-542; +LISI-898
--- NOTE | 2020-10-29 10:02 | REPVR ---
PROCEDURE INFORMATION: Exam: CT Lumbar Spine Without Contrast Exam date and time: 10/29/2020 9:26 AM Age: 60 years old Clinical indication: Low back pain; Additional info: Lumbar radiculopathy TECHNIQUE: Imaging protocol: Computed tomography images of the lumbar spine without contrast. Radiation optimization: All CT scans at this facility use at least one of these dose optimization techniques: automated exposure control; mA and/or kV adjustment per patient size (includes targeted exams where dose is matched to clinical indication); or iterative reconstruction. COMPARISON: MRI-Spine, L.S. without con 07/09/2016 9:12 AM FINDINGS: Vertebrae: No acute fracture. Diffuse demineralization of the bones. Mild loss of disc spaces with disc vacuum phenomena at multiple levels. Minimal retrolisthesis of L4 on L5. Multilevel anterior osteophyte formation and facet joint arthropathy. L1-L2: Mild diffuse disc bulge with bilateral facet joint arthropathy without any significant central spinal canal stenosis or neural foraminal narrowing. L2-L3: Diffuse disc bulge with bilateral facet joint arthropathy without any significant central spinal canal stenosis or neural foraminal narrowing. L3-L4: Diffuse disc bulge with bilateral facet joint arthropathy and ligamentum flavum hypertrophy resulting in mild central spinal canal stenosis and mild bilateral neural foraminal narrowing. L4-L5: Diffuse disc bulge with bilateral facet joint arthropathy and ligamentum flavum hypertrophy resulting in mild central spinal canal stenosis and mild bilateral neural foraminal narrowing. L5-S1: Diffuse disc bulge with bilateral facet joint arthropathy resulting in mild central spinal canal stenosis, moderate right and mild to moderate left neural foraminal narrowing. Soft tissues: Unremarkable. Aortic stent graft extending into the right common iliac artery. Aortic aneurysm measuring about 4.5 x 4.2 mm. No retroperitoneal hematoma formation. Status post cholecystectomy. Few colonic diverticula. IMPRESSION: Multilevel degenerative changes as described in detail above. Please see above dictation for individual levels. Electronically signed by: Luz Maria Robles On 10/29/2020 10:02:19 AM
== END ==
LOC: M RAD 09:01
PROVIDERS: ATTEND Nurse Practitioner Family
DX: M51.16 Intervertebral disc disorders with radiculopathy, lumbar region (principal); M48.061 Spinal stenosis, lumbar region without neurogenic claudication

== ENCOUNTER → 2020-11-03 | Outpatient (REF) | payer OTHER ==
[~2020-11-03] MED LIST changes: +LISI-542; -LISI-898
== END ==
LOC: M LAB REF 12:45
PROVIDERS: ATTEND Nurse Practitioner Family
DX: L03.114 Cellulitis of left upper limb (principal)

== ENCOUNTER → 2020-12-12 | Outpatient (CLI) | payer OTHER ==
[~2020-12-12] MED LIST changes: +CLOP75TA2 PO; +COLA100C5 PO; -GABA600T4; +GABA600T4 PO; -LISI-542; +LISI-898; -OXYC10TA3; +OXYC10TA3 PO
== END ==
LOC: M LABSMTC 11:07
PROVIDERS: ATTEND Anesthesiology
DX: Z01.812 Encounter for preprocedural laboratory examination (principal); Z20.822 Contact with and (suspected) exposure to COVID-19

== ENCOUNTER 2020-12-17 08:00 | Day surgery (SDC) | payer OTHER ==
[~2020-12-17] VITALS: Ht 160 cm; Wt 76.2 kg
[~2020-12-17 08:00] MED LIST changes: +LIDOCAINE 2% 100MG/5ML SDV (FOR ANES.) As Ordered ONE; +NS 1,000 ML IV ONE; +propofoL 200 MG/20 ML VIAL As Ordered ONE
--- NOTE | 2020-12-17 09:42 | ROOR ---
Patient Name: Nicole West Procedure Date: 12/17/2020 8:56 AM Date of : 1960 Age: 60 Room: [facility] Gender: Female Note Status: Finalized Procedure: Colonoscopy Indications: Abnormal CT of the GI tract Providers: DO Elsa Raya MD: TAYLOR Jimenez Requesting Provider: Medicines: Propofol per Anesthesia Complications: No immediate complications. Procedure: Pre-Anesthesia Assessment: - Prior to the procedure, a History and Physical was performed, and patient medications and allergies were reviewed. The patient is competent. The risks and benefits of the procedure and the sedation options and risks were discussed with the patient. All questions were answered and informed consent was obtained. Patient identification and proposed procedure were verified by the physician, the nurse, the instructor bridge and the administrative support technician in the endoscopy suite. Mental Status Examination: alert and oriented. Airway Examination: normal oropharyngeal airway and neck mobility. Respiratory Examination: clear to auscultation. CV Examination: normal. Prophylactic Antibiotics: The patient does not require prophylactic antibiotics. Prior Anticoagulants: The patient has taken no previous anticoagulant or antiplatelet agents. ASA Grade Assessment: II - A patient with mild systemic disease. After reviewing the risks and benefits, the patient was deemed in satisfactory condition to undergo the procedure. The anesthesia plan was to use monitored anesthesia care (MAC). Immediately prior to administration of medications, the patient was re-assessed for adequacy to receive sedatives. The heart rate, respiratory rate, oxygen saturations, blood pressure, adequacy of pulmonary ventilation, and response to care were monitored throughout the procedure. The physical status of the patient was re-assessed after the procedure. The Colonoscope was introduced through the anus and advanced to the cecum, identified by appendiceal orifice and ileocecal valve. The colonoscopy was performed without difficulty. The patient tolerated the procedure well. Findings: Two multi-lobulated polyps were found in the hepatic flexure. The polyps were 4 to 20 mm in size. These polyps were removed with a hot snare. Resection and retrieval were complete. Estimated blood loss was minimal. Impression: - Two 4 to 20 mm polyps at the hepatic flexure, removed with a hot snare. Resected and retrieved. Recommendation: - Patient has a contact number available for emergencies. The signs and symptoms of potential delayed complications were discussed with the patient. Return to normal activities tomorrow. Written discharge instructions were provided to the patient. - Await pathology results. - Repeat colonoscopy in 1 year for surveillance after piecemeal polypectomy. - Return to my office at appointment to be scheduled. - Await pathology results. Procedure Code(s): --- Professional --- 14706, Colonoscopy, flexible; with removal of tumor(s), polyp(s), or other lesion(s) by snare technique Diagnosis Code(s): --- Professional --- K63.5, Polyp of colon R93.3, Abnormal findings on diagnostic imaging of other parts of digestive tract CPT copyright 2019 [employer]. All rights reserved. The codes documented in this report are preliminary and upon vice president of customer service review may be revised to meet current compliance requirements. Milton Maki DO 12/17/2020 9:41:23 AM Electronically signed by Milton Maki DO Number of Addenda: 0 Note Initiated On: 12/17/2020 8:56 AM Estimated Blood Loss: Estimated blood loss was minimal.
[2020-12-17 09:55] VITALS: BP 146/74
== END 2020-12-17 09:59 | disposition home or self-care (01) ==
LOC: M OPP 08:00
PROVIDERS: ATTEND Surgery
DX: D12.3 Benign neoplasm of transverse colon (principal); R93.3 Abnormal findings on diagnostic imaging of other parts of digestive tract; I10 Essential (primary) hypertension; F17.210 Nicotine dependence, cigarettes, uncomplicated; I71.4 Abdominal aortic aneurysm, without rupture; Z79.891 Long term (current) use of opiate analgesic; Z79.899 Other long term (current) drug therapy; Z88.0 Allergy status to penicillin; Z88.2 Allergy status to sulfonamides

== ENCOUNTER → 2020-12-29 | Outpatient (CLI) | payer OTHER ==
[~2020-12-29] MED LIST changes: -LIDOCAINE 2% 100MG/5ML SDV (FOR ANES.) As Ordered ONE; -NS 1,000 ML IV ONE; -propofoL 200 MG/20 ML VIAL As Ordered ONE
--- NOTE | 2020-12-29 11:18 | REP ---
INDICATION: NICOTINE DEPEND. COMPARISON: Comparison screening chest CT study November 12, 2019. Comparison CT pulmonary angiogram May 09, 2018.. TECHNIQUE: Dose reduction was performed utilizing CARE dose with automated adjustment of the kV and MAS according to patient size; iterative reconstruction, automated exposure control, as well as adaptive dose shielding. Helical scanning is acquired and 3 mm axial images are re-formatted at lung only windows. FINDINGS: Digital preliminary supervisor drying and winding radiograph is unremarkable. There are clips in right upper quadrant of the abdomen. Vascular calcification is observed unchanged. No lung mass or new pulmonary nodule is appreciated. No infiltrate or atelectasis is seen. IMPRESSION: Stable lung RADS category 1 findings. Repeat screening exam suggested in 1 year. <Electronically signed by Jasvir Casanova > 12/29/20 [id number]
== END ==
LOC: M RAD 10:33
PROVIDERS: ATTEND Physician Assistant
DX: F17.218 Nicotine dependence, cigarettes, with other nicotine-induced disorders (principal)

== ENCOUNTER → 2021-01-01 | Outpatient (REF) | payer OTHER ==
[2021-01-01 13:22] LABS: CHOLESTEROL RISK RATIO 3.309 (<5)
== END ==
LOC: M LABDRWAD 12:12
PROVIDERS: ATTEND Internal Medicine Cardiovascular Disease
DX: E78.00 Pure hypercholesterolemia, unspecified (principal)

== ENCOUNTER 2021-04-09 10:29 | Emergency (ER) | payer OTHER ==
[~2021-04-09] VITALS: Ht 160 cm; Wt 77.8 kg
[2021-04-09] MEDS ORDERED: AMLO2.5T3 (10:37)
--- NOTE | 2021-04-09 12:11 | REP ---
INDICATION: fell COMPARISON: None. TECHNIQUE: AP, lateral, bilateral oblique views of the left elbow. FINDINGS: No significant swelling. Age-related changes are appreciated. A very subtle nondisplaced radial head fracture cannot definitively be excluded and should be correlated with physical examination. IMPRESSION: No definite acute injury. However a very subtle nondisplaced radial head fracture cannot be excluded and should be correlated with physical examination. Consider re-evaluation in 5-7 days if the patient remains symptomatic. <Electronically signed by Osman Pepe > 04/09/21 [id number]
--- NOTE | 2021-04-09 12:12 | REP ---
INDICATION: fell COMPARISON: None. TECHNIQUE: AP, lateral, bilateral oblique views left wrist. FINDINGS: The carpal bones, surrounding osseous structures, soft tissues, and joint spaces are normal. There is no evidence for acute fracture or dislocation. No subcutaneous emphysema or radiodense foreign body. IMPRESSION: Normal wrist series. No acute fracture or dislocation. <Electronically signed by Osman Pepe > 04/09/21 [id number]
--- NOTE | 2021-04-09 12:13 | REP ---
INDICATION: fell COMPARISON: None. TECHNIQUE: Internal rotation, external rotation, and Y view. FINDINGS: Generalized age-related changes are appreciated at the acromioclavicular and glenohumeral joints. The subacromial space is normal. There is no evidence for acute fracture or dislocation. IMPRESSION: No acute fracture or dislocation. <Electronically signed by Osman Pepe > 04/09/21 [id number]
[2021-04-09 13:00] VITALS: BP 142/79
== END 2021-04-09 13:01 | disposition home or self-care (01) ==
LOC: M ED 10:29
DX: S59.902A Unspecified injury of left elbow, initial encounter (principal); W18.39XA Other fall on same level, initial encounter; Y92.89 Other specified places as the place of occurrence of the external cause; Y99.0 Civilian activity done for income or pay; I10 Essential (primary) hypertension; J44.9 Chronic obstructive pulmonary disease, unspecified; G62.9 Polyneuropathy, unspecified; Z79.899 Other long term (current) drug therapy; Z79.01 Long term (current) use of anticoagulants; Z88.0 Allergy status to penicillin; Z88.1 Allergy status to other antibiotic agents; Z88.2 Allergy status to sulfonamides; F17.210 Nicotine dependence, cigarettes, uncomplicated

== ENCOUNTER → 2021-04-23 | Outpatient (CLI) | payer OTHER ==
[~2021-04-23] MED LIST changes: +AMLO2.5T3
--- NOTE | 2021-04-23 10:08 | REP ---
INDICATION: PAIN LEFT ELBOW. COMPARISON: Comparison radiographs of the left elbow are from April 09, 2021.. TECHNIQUE: Four views of the left elbow are provided. FINDINGS: The today's left elbow radiographs demonstrate cortical step-off and slight impaction in the proximal radial head confirming the presence of a nondisplaced radial head fracture. There is a tiny spur on the coronoid process of the proximal ulna. No ulnar or humeral fracture is seen. No evidence of joint effusion is seen on the lateral radiograph although it is not a 90 degree lateral. IMPRESSION: Slightly impacted nondisplaced fracture of the proximal radial head. <Electronically signed by Jasvir Casanova > 04/23/21 [id number]
== END ==
LOC: M SOG 09:54
PROVIDERS: ATTEND Orthopaedic Surgery Sports Medicine
DX: S52.125A Nondisplaced fracture of head of left radius, initial encounter for closed fracture (principal)

== ENCOUNTER → 2021-08-10 | Outpatient (CLI) | payer OTHER ==
--- NOTE | 2021-08-10 13:36 | REP ---
INDICATION: BILATERAL HIP PAIN. COMPARISON: None TECHNIQUE: AP and frog-lateral views bilateral FINDINGS: The hip joint spaces are symmetric and well maintained. There is no acute fracture, dislocation, or subluxation. There is no prominent marginal osteophytosis. The femoral heads are spherical in shape and symmetric in appearance there is no evidence of buttressing. There is no destructive osseous lesion. IMPRESSION: Within normal limits <Electronically signed by Cm Shelby > 08/10/21 [id number]
--- NOTE | 2021-08-10 13:37 | REP ---
INDICATION: BILATERAL HIP PAIN. COMPARISON: None. TECHNIQUE: A single AP view of the pelvis was performed. FINDINGS: The hip joint spaces are symmetric and relatively well maintained. There is no acute fracture or destructive osseous lesion. IMPRESSION: Within normal limits <Electronically signed by Cm Shelby > 08/10/21 [id number]
== END ==
LOC: M ADAMS 11:02
PROVIDERS: ATTEND Nurse Practitioner Family
DX: M25.551 Pain in right hip (principal); M25.552 Pain in left hip

== ENCOUNTER → 2021-08-10 | Outpatient (REF) | payer OTHER ==
[2021-08-10 12:31] LABS: HEMATOCRIT 47.7 % (36.0-47.0); HEMOGLOBIN 15.7 g/dl (12.0-15.5); MEAN CORPUSCULAR HEMOGLOBIN 32.7 pg (27.0-33.0); MEAN CORPUSCULAR HGB CONC 32.9 g/dl (32.0-36.5); MEAN CORPUSCULAR VOLUME 99.4 fl (80.0-96.0); PLATELET COUNT, AUTOMATED 159 10^3/uL (150-450); WHITE BLOOD COUNT 7.7 10^3/uL (4.0-10.0)
[2021-08-10 13:02] LABS: ALBUMIN 3.5 GM/DL (3.2-5.2); ALT/SGPT 23 U/L (12-78); BILIRUBIN,TOTAL 0.4 MG/DL (0.2-1.0); BLOOD UREA NITROGEN 7 MG/DL (7-18); CALCIUM LEVEL 9.2 MG/DL (8.5-10.1); CARBON DIOXIDE LEVEL 29 MEQ/L (21-32); CHLORIDE LEVEL 109 MEQ/L (98-107); CREATININE FOR GFR 0.58 MG/DL (0.55-1.30); FREE T4 1.15 NG/DL (0.76-1.46); GLOMERULAR FILTRATION RATE > 60.0 (>51); GLUCOSE, FASTING 92 MG/DL (70-100); POTASSIUM SERUM 4.4 MEQ/L (3.5-5.1); SODIUM LEVEL 141 MEQ/L (136-145); TOTAL 25(OH) VITAMIN D 22.3 NG/ML (30.0-100.0); TOTAL PROTEIN 6.7 GM/DL (6.4-8.2); VITAMIN B12 LEVEL 318 PG/ML
[2021-08-10 13:03] LABS: FOLATE 11.3 NG/ML
== END ==
LOC: M SFHCADAM 10:28
PROVIDERS: ATTEND Physician Assistant
DX: J44.9 Chronic obstructive pulmonary disease, unspecified (principal); F17.210 Nicotine dependence, cigarettes, uncomplicated; I10 Essential (primary) hypertension; Z98.890 Other specified postprocedural states; R53.82 Chronic fatigue, unspecified; M50.30 Other cervical disc degeneration, unspecified cervical region

== ENCOUNTER 2022-02-04 15:39 | Emergency (ER) | payer OTHER ==
[~2022-02-04] VITALS: Ht 160 cm; Wt 78.2 kg
[~2022-02-04 15:39] MED LIST changes: -LISI-898; +LISI5TAB11
[2022-02-04 16:29] LABS: BASO # 0.1 10^3/uL (0.0-0.2); BASO % 0.7 % (0.0-1.0); EOS # 0.2 10^3/uL (0.0-0.5); EOS % 2.6 % (0.0-3.0); HEMOGLOBIN 14.8 g/dl (12.0-15.5); LYMPH # 1.5 10^3/uL (1.5-5.0); LYMPH % 21.1 % (24.0-44.0); MEAN CORPUSCULAR HEMOGLOBIN 32.9 pg (27.0-33.0); MEAN CORPUSCULAR HGB CONC 33.6 g/dl (32.0-36.5); MEAN CORPUSCULAR VOLUME 97.8 fl (80.0-96.0); MONO # 0.4 10^3/uL (0.0-0.8); MONO % 6.3 % (2.0-8.0); NEUTROPHILS # 4.8 10^3/uL (1.5-8.5); NEUTROPHILS % 68.9 % (36.0-66.0); PLATELET COUNT, AUTOMATED 166 10^3/uL (150-450)
[2022-02-04 17:04] LABS: CK-MB VALUE MASS 1.6 NG/ML (<3.6); MB/CK RELATIVE INDEX 1.58 (< OR =4)
[2022-02-04 17:11] LABS: BLOOD UREA NITROGEN 10 MG/DL (7-18); CALCIUM LEVEL 9.3 MG/DL (8.5-10.1); CARBON DIOXIDE LEVEL 27 MEQ/L (21-32); CHLORIDE LEVEL 108 MEQ/L (98-107); CREATININE FOR GFR 0.49 MG/DL (0.55-1.30); FREE T4 1.03 NG/DL (0.76-1.46); GLOMERULAR FILTRATION RATE > 60.0 (>51); GLUCOSE, FASTING 105 MG/DL (70-100); MAGNESIUM LEVEL 2.2 MG/DL (1.8-2.4); POTASSIUM SERUM 5.9 MEQ/L (3.5-5.1); SODIUM LEVEL 139 MEQ/L (136-145); THYROID STIMULATING HORMONE 0.924 uIU/ML (0.358-3.740)
[2022-02-04 18:07] LABS: CK-MB VALUE MASS 1.9 NG/ML (<3.6); MB/CK RELATIVE INDEX 1.37 (< OR =4)
[2022-02-04 18:32] VITALS: BP 146/68
== END 2022-02-04 18:45 | disposition home or self-care (01) ==
LOC: M ED 15:39
DX: I10 Essential (primary) hypertension (principal); R00.2 Palpitations; I45.19 Other right bundle-branch block; E78.5 Hyperlipidemia, unspecified; G62.9 Polyneuropathy, unspecified; Z79.899 Other long term (current) drug therapy; Z79.01 Long term (current) use of anticoagulants; Z88.0 Allergy status to penicillin; Z88.1 Allergy status to other antibiotic agents; Z88.2 Allergy status to sulfonamides; F17.210 Nicotine dependence, cigarettes, uncomplicated

== ENCOUNTER → 2022-02-19 | Outpatient (REF) | payer OTHER ==
[2022-02-19 13:22] LABS: BASO # 0.1 10^3/uL (0.0-0.2); BASO % 0.8 % (0.0-1.0); EOS # 0.2 10^3/uL (0.0-0.5); EOS % 3.2 % (0.0-3.0); HEMATOCRIT 45.5 % (36.0-47.0); HEMOGLOBIN 15.1 g/dl (12.0-15.5); LYMPH # 1.5 10^3/uL (1.5-5.0); LYMPH % 23.6 % (24.0-44.0); MEAN CORPUSCULAR HGB CONC 33.2 g/dl (32.0-36.5); MEAN CORPUSCULAR VOLUME 99.3 fl (80.0-96.0); MONO # 0.4 10^3/uL (0.0-0.8); MONO % 6.1 % (2.0-8.0); NEUTROPHILS # 4.1 10^3/uL (1.5-8.5); PLATELET COUNT, AUTOMATED 164 10^3/uL (150-450); RED BLOOD COUNT 4.58 10^6/uL (4.00-5.40); WHITE BLOOD COUNT 6.2 10^3/uL (4.0-10.0)
== END ==
LOC: M SFHCADAM 07:50
PROVIDERS: ATTEND Physician Assistant
DX: J40 Bronchitis, not specified as acute or chronic (principal); F17.218 Nicotine dependence, cigarettes, with other nicotine-induced disorders; Z91.89 Other specified personal risk factors, not elsewhere classified

== ENCOUNTER → 2022-02-19 | Outpatient (CLI) | payer OTHER ==
[2022-02-19 13:32] LABS: ALBUMIN 3.7 GM/DL (3.2-5.2); ALT/SGPT 21 U/L (12-78); BILIRUBIN,TOTAL 0.6 MG/DL (0.2-1.0); BLOOD UREA NITROGEN 8 MG/DL (7-18); CALCIUM LEVEL 9.2 MG/DL (8.5-10.1); CARBON DIOXIDE LEVEL 30 MEQ/L (21-32); CHLORIDE LEVEL 105 MEQ/L (98-107); CHOLESTEROL LEVEL 173 MG/DL (<200); CREATININE FOR GFR 0.64 MG/DL (0.55-1.30); GLOMERULAR FILTRATION RATE > 60.0 (>51); GLUCOSE, FASTING 92 MG/DL (70-100); HDL CHOLESTEROL 50 MG/DL (>40); LDL CHOLESTEROL 100 MG/DL (<100); NON-HDL-C 123 MG/DL; POTASSIUM SERUM 3.9 MEQ/L (3.5-5.1); SODIUM LEVEL 140 MEQ/L (136-145); TOTAL PROTEIN 6.6 GM/DL (6.4-8.2); TRIGLYCERIDES LEVEL 115 MG/DL (<150)
== END ==
LOC: M ADAMS 07:55
PROVIDERS: ATTEND Physician Assistant
DX: E78.00 Pure hypercholesterolemia, unspecified (principal); I10 Essential (primary) hypertension

== ENCOUNTER → 2022-05-04 | Outpatient (CLI) | payer OTHER | LOC: M PAIN 09:00 | PROVIDERS: ATTEND Nurse Practitioner Family | DX: M54.2 Cervicalgia (principal); M54.50 Low back pain, unspecified; I73.00 Raynaud's syndrome without gangrene; G62.9 Polyneuropathy, unspecified; G60.8 Other hereditary and idiopathic neuropathies; I10 Essential (primary) hypertension; F17.210 Nicotine dependence, cigarettes, uncomplicated; J44.9 Chronic obstructive pulmonary disease, unspecified; E78.5 Hyperlipidemia, unspecified; Z79.02 Long term (current) use of antithrombotics/antiplatelets; Z79.899 Other long term (current) drug therapy; Z79.891 Long term (current) use of opiate analgesic; R49.0 Dysphonia; I73.9 Peripheral vascular disease, unspecified; Z88.0 Allergy status to penicillin; Z88.1 Allergy status to other antibiotic agents; Z88.2 Allergy status to sulfonamides ==

== ENCOUNTER → 2022-07-13 | Outpatient (CLI) | payer OTHER | LOC: M RAD 09:06 | PROVIDERS: ATTEND Physician Assistant | DX: F17.218 Nicotine dependence, cigarettes, with other nicotine-induced disorders (principal); I70.0 Atherosclerosis of aorta; I25.10 Atherosclerotic heart disease of native coronary artery without angina pectoris ==

== ENCOUNTER → 2022-08-03 | Outpatient (CLI) | payer OTHER | LOC: M PLALAB 15:42 | PROVIDERS: ATTEND Physician Assistant | DX: R05.1 Acute cough (principal) ==

== ENCOUNTER → 2022-09-15 | Outpatient (REF) | payer OTHER ==
[~2022-09-15] MED LIST changes: +ADVA115A INH; +ALBU2.5V10 INH; +ALBU8.5H INH; +AMLO1TAB24 PO; +ATOR40TA75 PO; +DOXY-259 PO; +VALS1TAB66 PO; +VITMTA PO
== END ==
LOC: M SFHCADAM 12:57
PROVIDERS: ATTEND Physician Assistant
DX: J44.1 Chronic obstructive pulmonary disease with (acute) exacerbation (principal)

== ENCOUNTER 2022-09-16 20:33 | Inpatient (IN) | payer OTHER ==
[~2022-09-16] VITALS: Ht 160 cm; Wt 75.0 kg
[~2022-09-16 20:33] MED LIST changes: -ADVA115A INH; -ALBU2.5V10 INH; -ALBU8.5H INH; -AMLO1TAB24 PO; -ATOR40TA75 PO; -DOXY-259 PO; -VALS1TAB66 PO; -VITMTA PO
[2022-09-16 21:29] LABS: BASO % 0.4 % (0.0-1.0); EOS % 0.2 % (0.0-3.0); HEMATOCRIT 45.9 % (36.0-47.0); HEMOGLOBIN 14.8 g/dl (12.0-15.5); LYMPH # 0.9 10^3/uL (1.5-5.0); LYMPH % 15.5 % (24.0-44.0); MEAN CORPUSCULAR HEMOGLOBIN 32.3 pg (27.0-33.0); MEAN CORPUSCULAR HGB CONC 32.2 g/dl (32.0-36.5); MEAN CORPUSCULAR VOLUME 100.2 fl (80.0-96.0); MONO # 0.5 10^3/uL (0.0-0.8); MONO % 9.5 % (2.0-8.0); NEUTROPHILS # 4.1 10^3/uL (1.5-8.5); NEUTROPHILS % 74.2 % (36.0-66.0); PLATELET COUNT, AUTOMATED 131 10^3/uL (150-450); RED BLOOD COUNT 4.58 10^6/uL (4.00-5.40); WHITE BLOOD COUNT 5.5 10^3/uL (4.0-10.0)
[2022-09-16] MEDS ORDERED: methylPREDNISolone 125MG 2ML VIAL IV ONE (21:55)
[2022-09-16] MEDS: IPRATROPIUM 0.5MG/ALBUTEROL 2.5MG INH SOL UD 3ML (DUONEB) NEB PRN (22:24)
[2022-09-16 22:29] LABS: ABG BASE EXCESS 0.7 (-2.0-2.0); ABG HCO3 26.1 MEQ/L (22.0-26.0); ABG O2 SATURATION 88.7 % (95.0-99.0); ABG PARTIAL PRESSURE CO2 44.9 mmHg (35.0-45.0); ABG PARTIAL PRESSURE O2 52.1 mmHg (75.0-100.0); ABG STANDARD HCO3 24.8 MEQ/L (22.0-26.0); ABG TOTAL CO2 27.5 MEQ/L (23.0-31.0); ABG pH (ARTERIAL) 7.383 UNITS (7.350-7.450)
[2022-09-16 22:34] LABS: BILIRUBIN,DIRECT 0.1 MG/DL (<0.4)
[2022-09-16 22:36] LABS: THYROID STIMULATING HORMONE 0.888 uIU/ML (0.55-4.78)
[2022-09-16 22:37] LABS: ALBUMIN 3.2 G/DL (3.2-5.2); ALKALINE PHOSPHATASE 93 U/L (46-116); ALT/SGPT 26 U/L (7.0-40); AST/SGOT 51 U/L (<34); BILIRUBIN,TOTAL 0.4 MG/DL (0.3-1.2); BLOOD UREA NITROGEN 11 MG/DL (9-23); CALCIUM LEVEL 8.4 MG/DL (8.3-10.6); CARBON DIOXIDE LEVEL 24 MMOL/L (20-31); CHLORIDE LEVEL 105 MMOL/L (98-107); CK-MB VALUE MASS < 1.0 NG/ML (<3.6); CPK CREATINE PHOSPHOKINASE 90 U/L (34-145); CREATININE FOR GFR 0.54 MG/DL (0.55-1.30); GLOMERULAR FILTRATION RATE > 60.0 (>45); GLUCOSE, FASTING 105 MG/DL (74-106); MB/CK RELATIVE INDEX 1.11 (< OR =4); POTASSIUM SERUM 5.7 MMOL/L (3.5-5.1); SODIUM LEVEL 137 MMOL/L (136-145); TOTAL PROTEIN 6.4 G/DL (5.7-8.2)
[2022-09-16] MEDS ORDERED: ISOVUE-370 76% 100ML VIAL As Ordered ONE (23:18)
[2022-09-17] MEDS: IPRATROPIUM 0.5MG/ALBUTEROL 2.5MG INH SOL UD 3ML (DUONEB) NEB PRN (00:23)
[2022-09-17 00:25] LABS: CK-MB VALUE MASS < 1.0 NG/ML (<3.6); CPK CREATINE PHOSPHOKINASE 45 U/L (34-145); MB/CK RELATIVE INDEX 2.22 (< OR =4); POTASSIUM SERUM 4.2 MMOL/L (3.5-5.1)
[2022-09-17] MEDS ORDERED: MOM 30ML SUSPENSION UDC PO PRN (01:25)
[2022-09-17] MEDS ORDERED: ALBUTEROL SULFATE 2.5MG/0.5ML INH NEB SOLN NEB PRN (01:30)
[2022-09-17] MEDS: IPRATROPIUM 0.5MG/ALBUTEROL 2.5MG INH SOL UD 3ML (DUONEB) NEB SCH ×6 (02:19→23:50)
[2022-09-17] MEDS: AZITHROMYCIN 250MG TABLET PO SCH (03:00)
[2022-09-17] MEDS ORDERED: VALS1TAB66 PO (03:24)
[2022-09-17] MEDS ORDERED: DOXY-259 PO (03:24)
[2022-09-17] MEDS ORDERED: ATOR40TA75 PO (03:24)
[2022-09-17] MEDS ORDERED: AMLO1TAB24 PO (03:24)
[2022-09-17] MEDS ORDERED: ALBU8.5H INH (03:24)
[2022-09-17] MEDS ORDERED: ADVA115A INH (03:24)
[2022-09-17] MEDS ORDERED: HOME MED LIST COMPLETE! XX SCH ×2 (03:25→03:45)
[2022-09-17] MEDS ORDERED: ALBU2.5V10 INH (03:29)
[2022-09-17] MEDS ORDERED: VITMTA PO (03:43)
[2022-09-17] MEDS ORDERED: PERCOCET 5MG/325MG TAB PO ONE (04:00)
[2022-09-17 06:30] LABS: HEMATOCRIT 43.6 % (36.0-47.0); HEMOGLOBIN 14.1 g/dl (12.0-15.5); MEAN CORPUSCULAR HEMOGLOBIN 32.2 pg (27.0-33.0); MEAN CORPUSCULAR HGB CONC 32.3 g/dl (32.0-36.5); MEAN CORPUSCULAR VOLUME 99.5 fl (80.0-96.0); PLATELET COUNT, AUTOMATED 142 10^3/uL (150-450); RED BLOOD COUNT 4.38 10^6/uL (4.00-5.40); WHITE BLOOD COUNT 3.6 10^3/uL (4.0-10.0)
[2022-09-17 06:42] LABS: BLOOD UREA NITROGEN 12 MG/DL (9-23); CALCIUM LEVEL 8.7 MG/DL (8.3-10.6); CARBON DIOXIDE LEVEL 24 MMOL/L (20-31); CHLORIDE LEVEL 104 MMOL/L (98-107); CREATININE FOR GFR 0.53 MG/DL (0.55-1.30); GLOMERULAR FILTRATION RATE > 60.0 (>45); GLUCOSE, FASTING 202 MG/DL (74-106); SODIUM LEVEL 137 MMOL/L (136-145)
[2022-09-17] MEDS: CLOPIDOGREL 75 MG TAB PO SCH (08:10)
[2022-09-17] MEDS: GABAPENTIN 300 MG CAP PO SCH ×3 (08:10→21:16)
[2022-09-17] MEDS: NICOTINE 21MG/24HR 1 EA TRANSDERMAL TD SCH (08:11)
[2022-09-17] MEDS: amLODIPine 5 MG TAB PO SCH (08:11)
[2022-09-17] MEDS: MULTIVITAMINS/MINERALS THERAP 1 TAB PO SCH (08:11)
[2022-09-17] MEDS: ENOXAPARIN 40MG/0.4ML SYRINGE (J1650 PER 10MG) SC SCH (08:11)
[2022-09-17] MEDS: SYMBICORT 160/4.5MCG INHALER 6GM INH SCH ×2 (08:39→19:54)
[2022-09-17] MEDS ORDERED: predniSONE 20 MG TAB PO SCH (09:00)
[2022-09-17] MEDS ORDERED: guaiFENesin SYRUP 200MG 10ML UDC PO PRN (11:55)
[2022-09-17] MEDS: PERCOCET 5MG/325MG TAB PO PRN ×2 (14:23→22:09)
[2022-09-17 15:35] VITALS: BP 123/66
[2022-09-17] MEDS: ATORVASTATIN 20 MG TAB PO SCH (21:00)
[2022-09-17] MEDS: VALSARTAN 80 MG TAB (DIOVAN) PO SCH (21:16)
[2022-09-17 21:17] VITALS: BP 117/76
[2022-09-17] MEDS: methylPREDNISolone 40MG 1ML VIAL IV SCH (21:17)
[2022-09-18] MEDS: IPRATROPIUM 0.5MG/ALBUTEROL 2.5MG INH SOL UD 3ML (DUONEB) NEB SCH ×5 (02:50→20:44)
[2022-09-18] MEDS: methylPREDNISolone 40MG 1ML VIAL IV SCH ×3 (05:13→20:55)
[2022-09-18 06:00] VITALS: BP 108/71
[2022-09-18 06:12] LABS: HEMATOCRIT 45.5 % (36.0-47.0); HEMOGLOBIN 14.6 g/dl (12.0-15.5); MEAN CORPUSCULAR HEMOGLOBIN 31.9 pg (27.0-33.0); MEAN CORPUSCULAR HGB CONC 32.1 g/dl (32.0-36.5); MEAN CORPUSCULAR VOLUME 99.3 fl (80.0-96.0); PLATELET COUNT, AUTOMATED 141 10^3/uL (150-450); RED BLOOD COUNT 4.58 10^6/uL (4.00-5.40); WHITE BLOOD COUNT 4.9 10^3/uL (4.0-10.0)
[2022-09-18 06:32] LABS: MAGNESIUM LEVEL 2.1 MG/DL (1.8-2.4)
[2022-09-18 06:39] LABS: BLOOD UREA NITROGEN 15 MG/DL (9-23); CALCIUM LEVEL 8.8 MG/DL (8.3-10.6); CARBON DIOXIDE LEVEL 23 MMOL/L (20-31); CHLORIDE LEVEL 106 MMOL/L (98-107); CREATININE FOR GFR 0.57 MG/DL (0.55-1.30); GLOMERULAR FILTRATION RATE > 60.0 (>45); GLUCOSE, FASTING 126 MG/DL (74-106); PHOSPHORUS LEVEL 4.5 MG/DL (2.4-5.1); POTASSIUM SERUM 4.4 MMOL/L (3.5-5.1); SODIUM LEVEL 139 MMOL/L (136-145)
[2022-09-18] MEDS: SYMBICORT 160/4.5MCG INHALER 6GM INH SCH ×2 (08:02→20:43)
[2022-09-18] MEDS: ENOXAPARIN 40MG/0.4ML SYRINGE (J1650 PER 10MG) SC SCH (09:00)
[2022-09-18] MEDS ORDERED: FUROSEMIDE 20MG/2ML VIAL IV ONE (09:00)
[2022-09-18] MEDS: NICOTINE 21MG/24HR 1 EA TRANSDERMAL TD SCH (09:21)
[2022-09-18] MEDS: MULTIVITAMINS/MINERALS THERAP 1 TAB PO SCH (09:21)
[2022-09-18] MEDS: GABAPENTIN 300 MG CAP PO SCH ×2 (09:23→20:53)
[2022-09-18] MEDS: CLOPIDOGREL 75 MG TAB PO SCH (09:23)
[2022-09-18] MEDS: amLODIPine 5 MG TAB PO SCH (09:23)
[2022-09-18] MEDS: AZITHROMYCIN 250MG TABLET PO SCH (09:23)
[2022-09-18] MEDS: PERCOCET 5MG/325MG TAB PO PRN ×2 (09:35→20:54)
[2022-09-18 14:00] VITALS: BP 125/75
[2022-09-18] MEDS ORDERED: ONDANSETRON 4MG 2ML VIAL IV ONE (15:25)
[2022-09-18] MEDS: PANTOPRAZOLE 40MG VIAL IV SCH (15:59)
[2022-09-18] MEDS: MONTELUKAST 10 MG TAB PO SCH (20:53)
[2022-09-18] MEDS: ATORVASTATIN 20 MG TAB PO SCH (20:55)
[2022-09-18] MEDS: VALSARTAN 80 MG TAB (DIOVAN) PO SCH (20:55)
[2022-09-18 22:00] VITALS: BP 125/75
[2022-09-19] MEDS: IPRATROPIUM 0.5MG/ALBUTEROL 2.5MG INH SOL UD 3ML (DUONEB) NEB SCH ×6 (00:53→21:45)
[2022-09-19] MEDS: methylPREDNISolone 40MG 1ML VIAL IV SCH ×3 (05:40→20:51)
[2022-09-19] MEDS: PERCOCET 5MG/325MG TAB PO PRN ×3 (05:41→22:47)
[2022-09-19 06:00] VITALS: BP 124/60
[2022-09-19 07:05] LABS: HEMATOCRIT 43.8 % (36.0-47.0); HEMOGLOBIN 13.9 g/dl (12.0-15.5); MEAN CORPUSCULAR HEMOGLOBIN 31.8 pg (27.0-33.0); MEAN CORPUSCULAR HGB CONC 31.7 g/dl (32.0-36.5); MEAN CORPUSCULAR VOLUME 100.2 fl (80.0-96.0); PLATELET COUNT, AUTOMATED 151 10^3/uL (150-450); RED BLOOD COUNT 4.37 10^6/uL (4.00-5.40); WHITE BLOOD COUNT 6.3 10^3/uL (4.0-10.0)
[2022-09-19 07:10] VITALS: O2SAT 94
[2022-09-19] MEDS: SYMBICORT 160/4.5MCG INHALER 6GM INH SCH ×2 (07:13→21:45)
[2022-09-19 07:20] LABS: MAGNESIUM LEVEL 2.1 MG/DL (1.8-2.4)
[2022-09-19 07:22] LABS: BLOOD UREA NITROGEN 16 MG/DL (9-23); CARBON DIOXIDE LEVEL 27 MMOL/L (20-31); CHLORIDE LEVEL 104 MMOL/L (98-107); CREATININE FOR GFR 0.64 MG/DL (0.55-1.30); GLOMERULAR FILTRATION RATE > 60.0 (>45); GLUCOSE, FASTING 136 MG/DL (74-106); PHOSPHORUS LEVEL 4.1 MG/DL (2.4-5.1); POTASSIUM SERUM 4.6 MMOL/L (3.5-5.1); SODIUM LEVEL 139 MMOL/L (136-145)
[2022-09-19] MEDS: ENOXAPARIN 40MG/0.4ML SYRINGE (J1650 PER 10MG) SC SCH (09:00)
[2022-09-19] MEDS: GABAPENTIN 300 MG CAP PO SCH ×2 (10:15→20:50)
[2022-09-19] MEDS: MULTIVITAMINS/MINERALS THERAP 1 TAB PO SCH (10:15)
[2022-09-19] MEDS: CLOPIDOGREL 75 MG TAB PO SCH (10:15)
[2022-09-19] MEDS: NICOTINE 21MG/24HR 1 EA TRANSDERMAL TD SCH (10:15)
[2022-09-19] MEDS: PANTOPRAZOLE 40MG VIAL IV SCH (10:18)
[2022-09-19] MEDS: amLODIPine 5 MG TAB PO SCH (10:18)
[2022-09-19 14:00] VITALS: BP 123/59
[2022-09-19] MEDS: MONTELUKAST 10 MG TAB PO SCH (20:50)
[2022-09-19] MEDS: VALSARTAN 80 MG TAB (DIOVAN) PO SCH (20:51)
[2022-09-19] MEDS: ATORVASTATIN 20 MG TAB PO SCH (20:51)
[2022-09-19 22:00] VITALS: BP 156/81
[2022-09-20] MEDS: IPRATROPIUM 0.5MG/ALBUTEROL 2.5MG INH SOL UD 3ML (DUONEB) NEB SCH ×7 (01:40→23:50)
[2022-09-20] MEDS: methylPREDNISolone 40MG 1ML VIAL IV SCH ×2 (05:11→09:15)
[2022-09-20 06:00] VITALS: BP 150/79
[2022-09-20 07:02] LABS: HEMATOCRIT 44.9 % (36.0-47.0); HEMOGLOBIN 14.7 g/dl (12.0-15.5); MEAN CORPUSCULAR HEMOGLOBIN 32.5 pg (27.0-33.0); MEAN CORPUSCULAR HGB CONC 32.7 g/dl (32.0-36.5); MEAN CORPUSCULAR VOLUME 99.3 fl (80.0-96.0); PLATELET COUNT, AUTOMATED 166 10^3/uL (150-450); RED BLOOD COUNT 4.52 10^6/uL (4.00-5.40); WHITE BLOOD COUNT 6.6 10^3/uL (4.0-10.0)
[2022-09-20 07:30] LABS: BLOOD UREA NITROGEN 18 MG/DL (9-23); CARBON DIOXIDE LEVEL 30 MMOL/L (20-31); CHLORIDE LEVEL 104 MMOL/L (98-107); CREATININE FOR GFR 0.55 MG/DL (0.55-1.30); GLOMERULAR FILTRATION RATE > 60.0 (>45); GLUCOSE, FASTING 125 MG/DL (74-106); PHOSPHORUS LEVEL 4.2 MG/DL (2.4-5.1); POTASSIUM SERUM 4.1 MMOL/L (3.5-5.1); SODIUM LEVEL 139 MMOL/L (136-145)
[2022-09-20] MEDS: SYMBICORT 160/4.5MCG INHALER 6GM INH SCH ×2 (08:43→19:48)
[2022-09-20 08:44] VITALS: O2SAT 90
[2022-09-20] MEDS: ENOXAPARIN 40MG/0.4ML SYRINGE (J1650 PER 10MG) SC SCH (08:59)
[2022-09-20] MEDS: GABAPENTIN 300 MG CAP PO SCH ×2 (09:03→21:48)
[2022-09-20] MEDS: amLODIPine 5 MG TAB PO SCH (09:14)
[2022-09-20] MEDS: CLOPIDOGREL 75 MG TAB PO SCH (09:14)
[2022-09-20] MEDS: PANTOPRAZOLE 40MG VIAL IV SCH (09:15)
[2022-09-20] MEDS: MULTIVITAMINS/MINERALS THERAP 1 TAB PO SCH (09:15)
[2022-09-20] MEDS: NICOTINE 21MG/24HR 1 EA TRANSDERMAL TD SCH (09:16)
[2022-09-20] MEDS: PERCOCET 5MG/325MG TAB PO PRN ×2 (09:30→21:51)
[2022-09-20 14:00] VITALS: BP 150/79
[2022-09-20 16:03] VITALS: O2SAT 95
[2022-09-20] MEDS ORDERED: MAG SULF 1GM/100ML (MAG RUN) 1 GM in IV 1 EA IV ONE (16:05)
[2022-09-20] MEDS: ATORVASTATIN 20 MG TAB PO SCH (21:00)
[2022-09-20] MEDS: MONTELUKAST 10 MG TAB PO SCH (21:49)
[2022-09-20] MEDS: VALSARTAN 80 MG TAB (DIOVAN) PO SCH (21:50)
[2022-09-20 22:27] VITALS: BP 133/80
[2022-09-21] MEDS: IPRATROPIUM 0.5MG/ALBUTEROL 2.5MG INH SOL UD 3ML (DUONEB) NEB SCH ×3 (03:34→11:21)
[2022-09-21 06:10] VITALS: BP 116/71
[2022-09-21] MEDS: PERCOCET 5MG/325MG TAB PO PRN (06:27)
[2022-09-21 08:14] VITALS: O2SAT 94
[2022-09-21] MEDS: SYMBICORT 160/4.5MCG INHALER 6GM INH SCH (08:14)
[2022-09-21] MEDS: ENOXAPARIN 40MG/0.4ML SYRINGE (J1650 PER 10MG) SC SCH (09:00)
[2022-09-21] MEDS ORDERED: PRED10TA2 PO (09:20)
[2022-09-21] MEDS ORDERED: ALBU8.5H INH (09:20)
[2022-09-21] MEDS ORDERED: PRED20TA PO (09:20)
[2022-09-21] MEDS ORDERED: BENZ200C70 PO (09:24)
[2022-09-21] MEDS ORDERED: NICO21DI6 TOP (09:29)
[2022-09-21] MEDS: MULTIVITAMINS/MINERALS THERAP 1 TAB PO SCH (10:10)
[2022-09-21] MEDS: GABAPENTIN 300 MG CAP PO SCH (10:10)
[2022-09-21] MEDS: NICOTINE 21MG/24HR 1 EA TRANSDERMAL TD SCH (10:11)
[2022-09-21 10:15] VITALS: BP 133/71
[2022-09-21] MEDS: amLODIPine 5 MG TAB PO SCH (10:15)
[2022-09-21] MEDS: PANTOPRAZOLE 40MG VIAL IV SCH (10:15)
[2022-09-21] MEDS: methylPREDNISolone 40MG 1ML VIAL IV SCH (10:16)
[2022-09-21] MEDS: CLOPIDOGREL 75 MG TAB PO SCH (11:18)
[2022-09-21 11:21] VITALS: O2SAT 92
== END 2022-09-21 14:30 | disposition home health service (06) | DRG 140 ==
LOC: EDSEX 20:33 → M ED 20:33 → EDBD 20:33 → M ED INP 09-17 01:24 → ENRESERV 09-17 15:02 → M MS5PR 09-17 15:35
PROVIDERS: ADMIT Family Medicine; ATTEND Internal Medicine
DX: J44.1 Chronic obstructive pulmonary disease with (acute) exacerbation (principal); Z99.81 Dependence on supplemental oxygen; G62.9 Polyneuropathy, unspecified; I10 Essential (primary) hypertension; I73.9 Peripheral vascular disease, unspecified; F17.200 Nicotine dependence, unspecified, uncomplicated; I71.40 Abdominal aortic aneurysm, without rupture, unspecified; R59.0 Localized enlarged lymph nodes; J45.909 Unspecified asthma, uncomplicated; Z90.49 Acquired absence of other specified parts of digestive tract; Z79.02 Long term (current) use of antithrombotics/antiplatelets; Z79.891 Long term (current) use of opiate analgesic; Z79.899 Other long term (current) drug therapy; Z88.0 Allergy status to penicillin; Z88.2 Allergy status to sulfonamides; Z71.6 Tobacco abuse counseling

== ENCOUNTER → 2023-01-11 | Outpatient (CLI) | payer OTHER ==
[~2023-01-11] MED LIST changes: +ADVA115A INH; +ALBU2.5V10 INH; +ALBU8.5H INH; +AMLO1TAB24 PO; +ATOR40TA75 PO; +BENZ200C70 PO; +DOXY-259 PO; +NICO21DI6 TOP; +PRED10TA2 PO; +PRED20TA PO; +VALS1TAB66 PO; +VITMTA PO
== END ==
LOC: M PLAIMG 13:45
PROVIDERS: ATTEND Internal Medicine Critical Care Medicine
DX: R91.8 Other nonspecific abnormal finding of lung field (principal)

== ENCOUNTER → 2023-06-03 | Outpatient (CLI) | payer OTHER ==
[~2023-06-03] MED LIST changes: +ISOVUE-370 76% 100ML VIAL As Ordered ONE
[2023-06-03 09:32] LABS: BASO % 0.9 % (0.0-1.0); EOS # 0.2 10^3/uL (0.0-0.5); EOS % 3.6 % (0.0-3.0); HEMOGLOBIN 13.3 g/dl (12.0-15.5); LYMPH # 1.3 10^3/uL (1.5-5.0); MEAN CORPUSCULAR HEMOGLOBIN 31.4 pg (27.0-33.0); MEAN CORPUSCULAR HGB CONC 32.4 g/dl (32.0-36.5); MEAN CORPUSCULAR VOLUME 96.7 fl (80.0-96.0); MONO # 0.3 10^3/uL (0.0-0.8); MONO % 6.9 % (2.0-8.0); NEUTROPHILS # 2.7 10^3/uL (1.5-8.5); NEUTROPHILS % 60.4 % (36.0-66.0); PLATELET COUNT, AUTOMATED 157 10^3/uL (150-450); RED BLOOD COUNT 4.24 10^6/uL (4.00-5.40); WHITE BLOOD COUNT 4.5 10^3/uL (4.0-10.0)
[2023-06-03 10:01] LABS: ALBUMIN 3.7 G/DL (3.2-5.2); ALKALINE PHOSPHATASE 94 U/L (46-116); ALT/SGPT 20 U/L (7.0-40); AST/SGOT 15 U/L (<34); BILIRUBIN,TOTAL 0.7 MG/DL (0.3-1.2); BLOOD UREA NITROGEN 9 MG/DL (9-23); CARBON DIOXIDE LEVEL 28 MMOL/L (20-31); CHLORIDE LEVEL 107 MMOL/L (98-107); CHOLESTEROL LEVEL 200 MG/DL (<200); CHOLESTEROL RISK RATIO 3.35 (<5); CREATININE FOR GFR 0.72 MG/DL (0.55-1.30); GLOMERULAR FILTRATION RATE > 60.0 (>45); GLUCOSE, FASTING 95 MG/DL (74-106); HDL CHOLESTEROL 59.6 MG/DL (>40); LDL CHOLESTEROL 126.2 MG/DL (<100); NON-HDL-C 140.4 MG/DL; POTASSIUM SERUM 4.5 MMOL/L (3.5-5.1); SODIUM LEVEL 141 MMOL/L (136-145); TOTAL PROTEIN 6.4 G/DL (5.7-8.2); TRIGLYCERIDES LEVEL 71 MG/DL (<150)
== END ==
LOC: M RAD 08:28
PROVIDERS: ATTEND Physician Assistant
DX: Z98.890 Other specified postprocedural states (principal)
CPT/HCPCS: 36415; 74177; 80053; 80061; 85025; Q9967

== ENCOUNTER → 2023-06-28 | Outpatient (REF) | payer OTHER ==
[~2023-06-28] MED LIST changes: -ISOVUE-370 76% 100ML VIAL As Ordered ONE
== END ==
LOC: M SFHCADAM 10:54
PROVIDERS: ATTEND Physician Assistant
DX: R63.5 Abnormal weight gain (principal); R53.82 Chronic fatigue, unspecified; Z53.9 Procedure and treatment not carried out, unspecified reason

== ENCOUNTER → 2023-12-13 | Outpatient (REF) | payer OTHER ==
[2023-12-13 13:08] LABS: HEMATOCRIT 42.1 % (36.0-47.0); HEMOGLOBIN 13.6 g/dl (12.0-15.5); MEAN CORPUSCULAR HEMOGLOBIN 31.7 pg (27.0-33.0); MEAN CORPUSCULAR HGB CONC 32.3 g/dl (32.0-36.5); MEAN CORPUSCULAR VOLUME 98.1 fl (80.0-96.0); PLATELET COUNT, AUTOMATED 162 10^3/uL (150-450); RED BLOOD COUNT 4.29 10^6/uL (4.00-5.40); WHITE BLOOD COUNT 5.6 10^3/uL (4.0-10.0)
[2023-12-13 13:15] LABS: ALBUMIN 3.9 G/DL (3.2-5.2); ALKALINE PHOSPHATASE 108 U/L (46-116); ALT/SGPT 15 U/L (7.0-40); AST/SGOT 15 U/L (<34); BILIRUBIN,TOTAL 0.6 MG/DL (0.3-1.2); BLOOD UREA NITROGEN 23 MG/DL (9-23); CALCIUM LEVEL 8.8 MG/DL (8.3-10.6); CARBON DIOXIDE LEVEL 27 MMOL/L (20-31); CHLORIDE LEVEL 110 MMOL/L (98-107); CHOLESTEROL LEVEL 152 MG/DL (<200); CHOLESTEROL RISK RATIO 3.03 (<5); GLOMERULAR FILTRATION RATE > 60.0 (>45); GLUCOSE, FASTING 91 MG/DL (74-106); HDL CHOLESTEROL 50.1 MG/DL (>40); LDL CHOLESTEROL 82.5 MG/DL (<100); NON-HDL-C 101.9 MG/DL; POTASSIUM SERUM 4.3 MMOL/L (3.5-5.1); SODIUM LEVEL 141 MMOL/L (136-145); TOTAL PROTEIN 6.5 G/DL (5.7-8.2); TRIGLYCERIDES LEVEL 97 MG/DL (<150)
== END ==
LOC: M SFHCADAM 10:36
PROVIDERS: ATTEND Physician Assistant
DX: I25.10 Atherosclerotic heart disease of native coronary artery without angina pectoris (principal); I10 Essential (primary) hypertension; I73.9 Peripheral vascular disease, unspecified; K21.9 Gastro-esophageal reflux disease without esophagitis; F17.218 Nicotine dependence, cigarettes, with other nicotine-induced disorders; Z98.890 Other specified postprocedural states

== ENCOUNTER → 2023-12-16 | Outpatient (CLI) | payer OTHER | LOC: M ADAMS 11:57 | PROVIDERS: ATTEND Physician Assistant | DX: M25.551 Pain in right hip (principal) ==

== ENCOUNTER → 2024-01-18 | Outpatient (CLI) | payer OTHER | LOC: M WUC 11:01 → M ADAMS 11:01 | PROVIDERS: ATTEND Physician Assistant | DX: J44.1 Chronic obstructive pulmonary disease with (acute) exacerbation (principal) ==

== ENCOUNTER → 2024-03-29 | Outpatient (CLI) | payer OTHER | LOC: M RAD 08:48 | PROVIDERS: ATTEND Internal Medicine Critical Care Medicine | DX: Z12.2 Encounter for screening for malignant neoplasm of respiratory organs (principal); F17.218 Nicotine dependence, cigarettes, with other nicotine-induced disorders ==

== ENCOUNTER → 2024-08-13 | Outpatient (CLI) | payer OTHER ==
[~2024-08-13] MED LIST changes: +GABA-1490 PO; -GABA600T4 PO
== END ==
LOC: M PLAIMG 09:27
PROVIDERS: ATTEND Physician Assistant
DX: R06.02 Shortness of breath (principal); I34.0 Nonrheumatic mitral (valve) insufficiency

== ENCOUNTER → 2025-01-29 | Outpatient (CLI) | payer OTHER ==
[2025-01-29 09:28] LABS: HEMATOCRIT 40.4 % (36.0-47.0); HEMOGLOBIN 12.9 g/dl (12.0-15.5); MEAN CORPUSCULAR HEMOGLOBIN 31.5 pg (27.0-33.0); MEAN CORPUSCULAR HGB CONC 31.9 g/dl (32.0-36.5); MEAN CORPUSCULAR VOLUME 98.8 fl (80.0-96.0); PLATELET COUNT, AUTOMATED 173 10^3/uL (150-450); RED BLOOD COUNT 4.09 10^6/uL (4.00-5.40); WHITE BLOOD COUNT 5.9 10^3/uL (4.0-10.0)
[2025-01-29 10:00] LABS: ALBUMIN 3.7 G/DL (3.2-5.2); BILIRUBIN,TOTAL 0.7 MG/DL (0.3-1.2); CALCIUM LEVEL 8.8 MG/DL (8.3-10.6); CHOLESTEROL RISK RATIO 3.4 (<5); CREATININE FOR GFR 0.97 MG/DL (0.55-1.30); GLOMERULAR FILTRATION RATE 66.1 (>45); HDL CHOLESTEROL 58.7 MG/DL (>40); LDL CHOLESTEROL 117.3 MG/DL (<100); NON-HDL-C 141.3 MG/DL; POTASSIUM SERUM 4.6 MMOL/L (3.5-5.1); TOTAL PROTEIN 6.6 G/DL (5.7-8.2)
== END ==
LOC: M LAB 08:25
PROVIDERS: ATTEND Physician Assistant
DX: R06.02 Shortness of breath (principal); I10 Essential (primary) hypertension; E78.00 Pure hypercholesterolemia, unspecified

== ENCOUNTER → 2025-05-24 | Outpatient (CLI) | payer OTHER | LOC: M RAD 10:29 | PROVIDERS: ATTEND Internal Medicine Critical Care Medicine | DX: J43.9 Emphysema, unspecified (principal); F17.218 Nicotine dependence, cigarettes, with other nicotine-induced disorders ==

== ENCOUNTER → 2025-08-01 | Outpatient (CLI) | payer OTHER | LOC: M PLARAD 07:41 | PROVIDERS: ATTEND Pain Medicine Pain Medicine | DX: M54.12 Radiculopathy, cervical region (principal); M47.812 Spondylosis without myelopathy or radiculopathy, cervical region ==

== ENCOUNTER → 2025-08-23 | Outpatient (REF) | payer OTHER ==
[2025-08-23 17:45] LABS: BASO # 0.1 10^3/uL (0.0-0.2); BASO % 0.7 % (0.0-1.0); EOS # 0.2 10^3/uL (0.0-0.5); EOS % 2.4 % (0.0-3.0); LYMPH # 1.3 10^3/uL (1.5-5.0); LYMPH % 18.7 % (24.0-44.0); MONO # 0.5 10^3/uL (0.0-0.8); MONO % 6.9 % (2.0-8.0); NEUTROPHILS # 5.0 10^3/uL (1.5-8.5); NEUTROPHILS % 71.2 % (36.0-66.0); PLATELET COUNT, AUTOMATED 191 10^3/uL (150-450)
[2025-08-23 18:10] LABS: ALT/SGPT 21.0 U/L (7.0-40); AST/SGOT 19.0 U/L (<34); CALCIUM LEVEL 9.5 MG/DL (8.3-10.6); CARBON DIOXIDE LEVEL 28.0 MMOL/L (20-31); CHLORIDE LEVEL 105.0 MMOL/L (98-107); CHOLESTEROL LEVEL 166.0 MG/DL (<200); CHOLESTEROL RISK RATIO 2.64 (<5); CREATININE FOR GFR 0.83 MG/DL (0.55-1.30); FREE T4 1.25 NG/DL (0.89-1.76); GLOMERULAR FILTRATION RATE 79.2 (>45); LDL CHOLESTEROL 86.0 MG/DL (<100); NON-HDL-C 103.2 MG/DL; POTASSIUM SERUM 4.3 MMOL/L (3.5-5.1); SODIUM LEVEL 144.0 MMOL/L (136-145); TRIGLYCERIDES LEVEL 86.0 MG/DL (<150)
[2025-08-23 18:11] LABS: VITAMIN B12 LEVEL 283.0 PG/ML (211-911)
[2025-08-23 18:16] LABS: ESTIMATED AVERAGE GLUCOSE 100.0 MG/DL (60-110)
== END ==
LOC: M SFHCADAM 12:10
PROVIDERS: ATTEND Family Medicine
DX: R53.82 Chronic fatigue, unspecified (principal); Z13.1 Encounter for screening for diabetes mellitus; K11.6 Mucocele of salivary gland; I10 Essential (primary) hypertension; E78.49 Other hyperlipidemia